=== PATIENT | male | born 1940 | race Caucasian/White ===

== ENCOUNTER → 2024-03-05 08:05 | Outpatient (REF) | payer MEDICARE, OTHER, SELFPAY ==
[2024-03-05 09:19] LABS: % Basophils 0.5 % (0-2); % Eosinophils 4.3 % (0-6); % Immature Granulocytes 0.5 % (0-0.5); % Lymphocytes 24.6 % (20.5-51.1); % Neutrophils 58.1 % (42.2-75.2); Absolute Eosinophils 0.3 10^3/uL (0-0.7); Absolute Lymphocytes 1.8 10^3/uL (1.2-3.4); Absolute Monocytes 0.9 10^3/uL (0.1-0.6); Absolute Neutrophils 4.3 10^3/uL (1.4-6.5); Hematocrit 45.2 % (39.0-52.0); Hemoglobin 15.5 g/dL (13.0-18.0); Mean Corp Hgb Conc. 34.3 g/dL (33.0-37.0); Mean Corpuscular Hgb 30.9 pg (27.0-31.0); Mean Corpuscular Volume 90.2 fL (80.0-94.0); Mean Platelet Volume 11.3 fL (7.4-10.4); Nucleated Red Blood Cells % 0 % (-); Platelet Count 323 10^3/uL (130-400); Red Blood Cell Count 5.01 10^6/uL (4.70-6.10); Red Cell Dist. Width 14.5 % (11.5-14.5); White Blood Cell Count 7.4 10^3/uL (4.8-10.8)
[2024-03-05 09:56] LABS: ALT (SGPT) 18 U/L (0-50); AST (SGOT) 31 U/L (17-59); Albumin 4.3 g/dl (3.5-5.0); Alkaline Phosphatase 69 U/L (38-126); Blood Urea Nitrogen 29 mg/dl (9-20); Calcium 10.1 mg/dl (8.4-10.2); Carbon Dioxide 28 mmol/L (22-30); Chloride 103 mmol/L (98-107); Glucose 106 mg/dl (70-99); Potassium 4.3 mmol/L (3.5-5.1); Sodium 139 mmol/L (135-145); Total Bilirubin 0.7 mg/dl (0.2-1.3); Total Cholesterol 232 mg/dl (50-199); Triglyceride 165 mg/dl (10-149); Very Low Density Lipoprotein 33 mg/dl (0-30); eGFR > 60.00
[2024-03-05 09:57] LABS: HDL Cholesterol 40 mg/dl; LDL Cholesterol, Calculated 159 mg/dl
== END ==
LOC: REG 08:05
PROVIDERS: ATTENDING PHYSICIAN Family Medicine; OTHER PHYSICIAN Internal Medicine Cardiovascular Disease; REFERRING PHYSICIAN Internal Medicine Gastroenterology
DX: I10 Essential (primary) hypertension (principal); Z86.79 Personal history of other diseases of the circulatory system; I48.0 Paroxysmal atrial fibrillation; K51.00 Ulcerative (chronic) pancolitis without complications; R79.9 Abnormal finding of blood chemistry, unspecified
CPT/HCPCS: 36415; 80053; 80061; 85025

== ENCOUNTER → 2024-11-18 09:21 | Outpatient (REF) | payer MEDICARE, OTHER, SELFPAY ==
[2024-11-18 10:21] LABS: % Basophils 0.5 % (0-2); % Eosinophils 2.4 % (0-6); % Immature Granulocytes 0.4 % (0-0.5); % Monocytes 9.9 % (1.7-9.3); % Neutrophils 69.8 % (42.2-75.2); Absolute Eosinophils 0.2 10^3/uL (0-0.7); Absolute Lymphocytes 1.4 10^3/uL (1.2-3.4); Absolute Monocytes 0.8 10^3/uL (0.1-0.6); Absolute Neutrophils 5.7 10^3/uL (1.4-6.5); Hematocrit 46.9 % (39.0-52.0); Hemoglobin 15.8 g/dL (13.0-18.0); Mean Corp Hgb Conc. 33.7 g/dL (33.0-37.0); Mean Corpuscular Hgb 30.6 pg (27.0-31.0); Mean Corpuscular Volume 90.9 fL (80.0-94.0); Mean Platelet Volume 11.5 fL (7.4-10.4); Nucleated Red Blood Cells % 0 % (-); Platelet Count 337 10^3/uL (130-400); Red Blood Cell Count 5.16 10^6/uL (4.70-6.10); Red Cell Dist. Width 14.9 % (11.5-14.5); White Blood Cell Count 8.2 10^3/uL (4.8-10.8)
[2024-11-18 12:01] LABS: ALT (SGPT) 18 U/L (0-50); AST (SGOT) 34 U/L (17-59); Albumin 4.4 g/dl (3.5-5.0); Alkaline Phosphatase 67 U/L (38-126); Blood Urea Nitrogen 32 mg/dl (9-20); Calcium 10.2 mg/dl (8.4-10.2); Carbon Dioxide 31 mmol/L (22-30); Chloride 101 mmol/L (98-107); Glucose 122 mg/dl (70-99); HDL Cholesterol 38 mg/dl; LDL Cholesterol, Calculated 149 mg/dl; Potassium 4.4 mmol/L (3.5-5.1); Sodium 140 mmol/L (135-145); Total Bilirubin 0.8 mg/dl (0.2-1.3); Total Cholesterol 222 mg/dl (50-199); Triglyceride 178 mg/dl (10-149); Very Low Density Lipoprotein 35 mg/dl (0-30); eGFR 59.63
== END ==
LOC: REG 09:21
PROVIDERS: ATTENDING PHYSICIAN Family Medicine
DX: I48.0 Paroxysmal atrial fibrillation (principal); I48.91 Unspecified atrial fibrillation; I10 Essential (primary) hypertension; K51.00 Ulcerative (chronic) pancolitis without complications; N18.2 Chronic kidney disease, stage 2 (mild); R79.9 Abnormal finding of blood chemistry, unspecified; Z95.1 Presence of aortocoronary bypass graft
CPT/HCPCS: 36415; 80053; 80061; 85025

== ENCOUNTER → 2025-02-24 13:34 | Outpatient (REF) | payer MEDICARE, OTHER, SELFPAY | LOC: RADI 13:34 | PROVIDERS: ATTENDING PHYSICIAN Radiology Diagnostic Radiology; FAMILY PHYSICIAN Physician Assistant Surgical | DX: M17.0 Bilateral primary osteoarthritis of knee (principal) ==

== ENCOUNTER 2025-03-22 06:39 | Outpatient (REF) | payer MEDICARE, OTHER, SELFPAY ==
[2025-03-22] VITALS (9 sets, daily range): BP systolic 83–166; BP diastolic 60–85
[2025-03-22 07:00] LABS: Hematocrit 46.8 % (39.0-52.0); Hemoglobin 16.2 g/dL (13.0-18.0); Mean Corp Hgb Conc. 34.6 g/dL (33.0-37.0); Mean Corpuscular Hgb 31.8 pg (27.0-31.0); Mean Corpuscular Volume 91.9 fL (80.0-94.0); Mean Platelet Volume 11.1 fL (7.4-10.4); Platelet Count 320 10^3/uL (130-400); Red Blood Cell Count 5.09 10^6/uL (4.70-6.10); White Blood Cell Count 8.9 10^3/uL (4.8-10.8)
[2025-03-22 07:07] LABS: INR 0.97; PT 13.2 Sec (11.4-14.6)
== END 2025-03-22 13:15 | disposition home or self-care (01) ==
LOC: RADI 06:39
PROVIDERS: ATTENDING PHYSICIAN Radiology Diagnostic Radiology; FAMILY PHYSICIAN Family Medicine; REFERRING PHYSICIAN Physician Assistant
DX: M17.12 Unilateral primary osteoarthritis, left knee (principal); M25.562 Pain in left knee; D68.8 Other specified coagulation defects; I73.9 Peripheral vascular disease, unspecified; Z53.8 Procedure and treatment not carried out for other reasons
CPT/HCPCS: 36415; 75710; 76937; 85027; 85610; 99152; 99153; C1769

== ENCOUNTER → 2025-03-30 11:27 | Outpatient (REF) | payer MEDICARE, OTHER, SELFPAY | LOC: HWRAD 11:27 | PROVIDERS: ATTENDING PHYSICIAN Internal Medicine Gastroenterology; FAMILY PHYSICIAN Family Medicine | DX: R09.89 Other specified symptoms and signs involving the circulatory and respiratory systems (principal) | CPT/HCPCS: 76770 ==

== ENCOUNTER → 2025-04-20 10:15 | Outpatient (REF) | payer MEDICARE, OTHER, SELFPAY ==
[2025-04-20 11:52] LABS: Protein/creatinine Ratio 0.1; Urine Protein 9 mg/dl
[2025-04-20 12:02] LABS: ALT (SGPT) 21 U/L (0-50); AST (SGOT) 33 U/L (17-59); Albumin 4.8 g/dl (3.5-5.0); Alkaline Phosphatase 60 U/L (38-126); Blood Urea Nitrogen 30 mg/dl (9-20); Calcium 10.1 mg/dl (8.4-10.2); Carbon Dioxide 26 mmol/L (22-30); Chloride 106 mmol/L (98-107); Glucose 120 mg/dl (70-99); HDL Cholesterol 39 mg/dl; LDL Cholesterol, Calculated 164 mg/dl; Potassium 4.2 mmol/L (3.5-5.1); Sodium 143 mmol/L (135-145); Total Bilirubin 0.7 mg/dl (0.2-1.3); Total Cholesterol 244 mg/dl (50-199); Total Protein 7.5 g/dl (6.3-8.2); Triglyceride 209 mg/dl (10-149); Very Low Density Lipoprotein 41 mg/dl (0-30); eGFR > 60.00
== END ==
LOC: REG 10:15
PROVIDERS: ATTENDING PHYSICIAN Specialist; FAMILY PHYSICIAN Family Medicine
DX: N18.2 Chronic kidney disease, stage 2 (mild) (principal); I10 Essential (primary) hypertension; R80.9 Proteinuria, unspecified; Z95.1 Presence of aortocoronary bypass graft; I48.0 Paroxysmal atrial fibrillation
CPT/HCPCS: 36415; 80053; 80061; 82570; 84156

== ENCOUNTER 2025-04-23 17:23 | Inpatient (IN) | payer MEDICARE, OTHER, SELFPAY ==
[2025-04-23] VITALS (16 sets, daily range): BP systolic 128–157; BP diastolic 59–97; BMI 29.2; BMI 28.3
[2025-04-23 10:01] LABS: % Basophils 0.3 % (0-2); % Eosinophils 2.2 % (0-6); % Immature Granulocytes 0.5 % (0-0.5); % Lymphocytes 14.2 % (20.5-51.1); % Monocytes 11.5 % (1.7-9.3); % Neutrophils 71.3 % (42.2-75.2); Absolute Eosinophils 0.2 10^3/uL (0-0.7); Absolute Lymphocytes 1.3 10^3/uL (1.2-3.4); Absolute Neutrophils 6.3 10^3/uL (1.4-6.5); Hemoglobin 15.1 g/dL (13.0-18.0); Mean Corp Hgb Conc. 34.3 g/dL (33.0-37.0); Mean Corpuscular Hgb 31.3 pg (27.0-31.0); Mean Corpuscular Volume 91.1 fL (80.0-94.0); Mean Platelet Volume 10.8 fL (7.4-10.4); Nucleated Red Blood Cells % 0 % (-); Platelet Count 269 10^3/uL (130-400); Red Blood Cell Count 4.83 10^6/uL (4.70-6.10); Red Cell Dist. Width 14.6 % (11.5-14.5); White Blood Cell Count 8.8 10^3/uL (4.8-10.8)
--- NOTE | 2025-04-23 10:07 | ED.GENMED ---
History of Present Illness
General
Chief Complaint: Chest Pain
Source: patient and ambulance crew
Exam Limitations: none
Time Seen by Provider: 04/23/25 09:49
History of Present Illness
History of Present Illness:
This patient is a very pleasant 84-year-old male who was feeling his usual self this morning when he woke up. He ate breakfast, which she describes as including granola, and felt like a piece of it got caught in his throat. He started to cough
intensely, and shortly after noted discomfort in his chest. He notes the pain was in the central/left side of his chest associated with discomfort in the right jaw. It was noted to be 8 out of 10 in intensity and over 20 minutes went down to a 2
and then a few minutes later fully resolved. He took for full dose aspirin and called EMS. He denies associated nausea, vomiting, diaphoresis, dyspnea, back pain, neck pain, headache, dizziness, leg swelling, or other complaints. He is pain-free
now and feels completely well.
Past History
Past History
ED Past Medical History: Arrthythmia, CAD, HTN and Other (Basal cell cancer)
ED Past Surgical History: Cardiac (CABG x4) and Other (Basal cell cancer removed from left eye lid)
Social History
Tobacco: Former smoker
Alcohol: None
Drug: None
Personal: Single
Living: alone
Employment: Employed
Family History
Family History: Diabetes
Phy Exam
Physical Exam
Physical Exam:
GENERAL: Alert , in no apparent distress
EYE: pupils equal and reactive
NECK: Supple, no significant adenopathy.
ENT: o/p clr, mmm.
CARDIAC: Regular rate and rhythm .
LUNGS: Clear breath sounds bilaterally, no acute respiratory distress, no wheezes/rales/rhonchi
ABDOMEN: Soft, without focal tenderness, no r/g, no cvat
NEUROLOGICAL: Alert and oriented, no focal neuro deficits
SKIN: Warm and dry, skin intact.
MUSCULOSKELETAL: No edema, well perfused.
PSYCH: Normal and appropriate interaction.
Scores
Heart Score for Chest Pain Patients
STEMI patient?: Not applicable
Course
Orders/Labs/Results
Orders:
Orders
04/23/25 Breakfast
Sodium, 2 Gram
At Your Request: Full Participation
04/23/25 09:46
Electrocardiogram (*1) Urgent
Reason for Study: Chest Pain
Cardiac Monitoring- Treatment ONCE
EKG- Treatment ONCE
IV Insert/Care/Rem.- Treatment PRN
04/23/25 09:52
Complete Blood Count/With Diff Urgent
Comprehensive Metabolic Panel Urgent
Prothrombin Time Urgent
Troponin I Urgent
04/23/25 10:06
CR Chest - 2 Views Urgent
Comment:
Reason For Exam: cp afater coughing
04/23/25 12:52
Troponin I Urgent
04/23/25 15:56
Troponin I Urgent
04/23/25 16:34
Electrocardiogram (*1) Urgent
Reason for Study: Chest Pain
EKG- Treatment ONCE
04/23/25 17:04
Heparin Protocol- PTT Orders As Directed
PTT per Heparin protocol: -Obtain CBC and baseline PTT - if not already collected.
-Obtain PTT 6 hours from start of infusion. Then, every 6 hours until 2 consecutive
PTT's are therapeutic. Then, PTT Daily.
-With each rate change, obtain PTT every 6 hours until 2 consecutive PTT's are
therapeutic. Then, PTT Daily.
Notify MD As Directed
Notify physician if: PTT is greater than or equal to 200.
04/23/25 17:05
Admit/Transfer Patient As Directed
Co-Sign Provider:
Level of Care: Inpatient admission
Assign to:: IVU
Physician / Group: Htay
Diagnosis: NSTEMI
Reason for Hospitalization: heparin drip, possibly cardiac cath
Expected length of stay greater than two midnights?: Yes
ELOS- Estimated Length of Stay in days: 3
I certify the patient meets the requirements for IP care: Yes
04/23/25 17:06
PRN Pain Medication Management As Directed
May give lesser potent ordered pain med per pt: Yes
preference::
Protocol:: Medication orders for pain may be administered in a
manner that supports deferring to patient preference
when the pt is:
- Requesting an ordered lesser potent pain medication.
Least to most potent pain medications are defined
as: acetaminophen < NSAID < tramadol < opioids
(morphine, oxycodone, hydromorphone).
- Requesting a lesser dose of the same medication IF
ORDERED.
- Requesting a less intrusive route of administration
if both routes are prescribed by the provider (PO <
IV).
04/23/25 17:07
Code Status As Directed
Resuscitation Status: Full Code
04/23/25 17:15
Heparin 92525 Units/250 ml 25,000 units in 250 ml IV PER PROTOCOL
Weight to be used for heparin protocol in kilograms (kg):: 94.8
Protocol:: Cardiac Tx/Acute Coronary
PTT Goal Range to be used:: PTT 73 to 111 seconds
Order type:: Initial
INITIAL Infusion Dose (UNITS/KG/hr) & then follow protocol:: 12 units/kg/hr
Infusion Dose in UNITS/hr & then follow protocol (UNITS/hr):: 1,000
INFUSION RATE in mL/hr & then follow protocol (mL/hr):: 10
PTT less than or equal to 64 seconds:: Increase rate by 200 units/hr (+ 2 mL/hr)
PTT 64.1 to 72.9 seconds:: Increase rate by 100 units/hr (+ 1 mL/hr)
PTT 73 to 111 seconds:: Target Range. No change in rate.
PTT 111.1 to 130.9 seconds:: Decrease rate by 100 units/hr (- 1 mL/hr)
PTT 131 to 199.9 seconds:: HOLD for 1 hr. Then decrease rate by 200 units/hr (- 2 mL/hr)
PTT greater than or equal to 200 seconds:: HOLD for 2 hrs & Notify Provider. Then decrease by 200 units/hr (-
2 mL/hr)
Lab follow-up:: Each change, PTT q6h until 2 consecutive are therapeutic. Then PTT
daily.
04/23/25 17:16
PTT Urgent
Comment: Obtain baseline before beginning heparin infusion if not already collected
04/23/25 18:31
Acetaminophen [Tylenol] 650 mg PO Q4HPRN PRN
Nitroglycerin Sublingual [Nitrostat (Sublingual)] 0.4 mg SL [id number] PRN
Ondansetron Injectable [Zofran] 4 mg IV Q6HPRN PRN
04/23/25 18:31
CARDIOLOGY CONSULT Routine
Consulting Provider: Des Omer
Was physician already notified: Yes
Activity As Directed
Activity Level: Out of Bed-Early Mobility
With Assistance
I&O [Intake/ Output] As Directed
Frequency: q12h
Vital Signs As Directed
Frequency: Per unit guidelines
Weight As Directed
Frequency: Daily
04/23/25 20:00
Metoprolol [Lopressor] 50 mg PO BID
04/23/25 22:00
balsalazide See Dose Instructions PO TID
04/23/25 23:11
Troponin I Q6H
04/24/25 04:33
Basic Metabolic Panel IN AM
Complete Blood Count/No Diff IN AM
Hgba1c [Glycohemoglobin (HgbA1c)] IN AM
Lipid Profile [Cardiovascular Evaluation] IN AM
Magnesium IN AM
Troponin I Q6H
04/24/25 Breakfast
NPO
Allow oral meds: Yes
Allow clear liquids: 4hrs prior to procedure
NPO with Ice Chips: Yes
Comment: may have unrestricted clear liquid up to 4 hrs prior to scheduled procedure
04/24/25 08:00
Aspirin Low Dose EC [Aspir Low (Enteric Coated)] 81 mg PO DAILY
Tamsulosin [Flomax] 0.4 mg PO DAILY
Valsartan [Diovan] 320 mg PO DAILY
Zinc 50mg (Zinc Sulfate 220mg) [Zinc] 50 mg PO DAILY
04/25/25 02:35
Complete Blood Count/No Diff Q2D
Comment: Notify MD if platelet count is <130,000 or decreases by 50% from baseline
04/27/25 06:00
Complete Blood Count/No Diff Q2D
Comment: Notify MD if platelet count is <130,000 or decreases by 50% from baseline
04/29/25 06:00
Complete Blood Count/No Diff Q2D
Comment: Notify MD if platelet count is <130,000 or decreases by 50% from baseline
05/01/25 06:00
Complete Blood Count/No Diff Q2D
Comment: Notify MD if platelet count is <130,000 or decreases by 50% from baseline
05/03/25 06:00
Complete Blood Count/No Diff Q2D
Comment: Notify MD if platelet count is <130,000 or decreases by 50% from baseline
05/05/25 06:00
Complete Blood Count/No Diff Q2D
Comment: Notify MD if platelet count is <130,000 or decreases by 50% from baseline
05/07/25 06:00
Complete Blood Count/No Diff Q2D
Comment: Notify MD if platelet count is <130,000 or decreases by 50% from baseline
05/09/25 06:00
Complete Blood Count/No Diff Q2D
Comment: Notify MD if platelet count is <130,000 or decreases by 50% from baseline
Abnormal Lab Results
04/23/25 04/23/25
09:52 15:56
MCH 31.3 H pg
(27.0-31.0)
RDW 14.6 H %
(11.5-14.5)
MPV 10.8 H fL
(7.4-10.4)
Absolute Monos (auto) 1.0 H 10^3/uL
(0.1-0.6)
Lymphocytes % 14.2 L %
(20.5-51.1)
Monocytes % 11.5 H %
(1.7-9.3)
Chloride 111 H mmol/L
(98-107)
BUN 33 H mg/dl
(9-20)
Glucose 135 H mg/dl
(70-99)
Troponin I 0.047 H* D ng/ml
04/23/25 09:52
04/23/25 09:52
Vital Signs
Initial and Last Documented VS:
Initial Vital Signs
Temp Pulse Resp BP Pulse Ox
98.4 F 79 22 147/73 95
04/23/25 09:39 04/23/25 09:39 04/23/25 09:39 04/23/25 09:39 04/23/25 09:39
Last Documented Vital Signs
Temp Pulse Resp BP Pulse Ox
98.4 F 71 20 121/88 97
04/25/25 08:06 04/25/25 08:05 04/25/25 08:06 04/25/25 08:05 04/25/25 08:06
*Critical Care Note
Total Time (30-74mins, 75-104mins- exclusive of procedures): Not Applicable
Update Note
Update Note:
Patient presents to the Emergency Department with ___chest pain after coughing
Number and Complexity of Problems Addressed at the Encounter
� Chronic conditions affecting care:
� Acute Exacerbation and/or Progression of Chronic Illness:
� Differential Diagnosis includes: But not limited to ACS, aspiration, pneumothorax, musculoskeletal etiology, etc. etc.
Amount and/or Complexity of Data to be Reviewed and Analyzed
� I performed an independent evaluation of and my interpretation is:
EKG: Read by me, normal sinus rhythm, PVCs noted, no acute ischemia
CT:
Xrays:cxr read by me nad
Laboratory Studies:generally unremarkable but for trop trending upward
Other:
� Review of other/old records reveals: Patient was seen December 2015 to discuss rhythm control options regarding his A-fib/a flutter. H&P reviewed, patient had an ablation at that time.
� Clinical information was obtained by an independent historian:
� Prescriptions/Medications Considered but not given:
� Further testing considered but not performed:
Risk of Complications and/or Morbidity or Mortality of Patient Management
� Social determinants of health affecting care:
� Discussion with other providers (PCP, Hospitalists, Consultants, etc):
� Escalation of care including admission/observation vs risk of discharge considered:Multiple reassesments, pt remains pain free, however trop trending upward, ?this AM event reflect ischemia? Repeat ecg uncahnged. Case d/w
hospitalist for admission/obs.
ED Attending Note
-
Portions of this chart may have been created with voice recognition software.� Occasional wrong word or��sound alike� substitutions may have occurred due to the inherent limitations of voice recognition software.
Discharge Plan
Departure
Patient Disposition: Admit
Date of Disposition: 04/23/25
Time of Disposition: 16:39
Admit to: Telemetry
Presentation/result/management discussed w/ accepting MD/DO: Hospitalist
Discharge Problem:
Chest pain
Interventions
Interventions:
*Risk Screen - Suicide Last Done: 04/23/25 10:34
*General Assessment Last Done: 04/23/25 10:34
*Neglect/Abuse Screening Last Done: 04/23/25 10:34
*ED- Fall Risk Assessment Last Done: 04/23/25 10:34
*ED COVID-19 Vaccine History Last Done: 04/23/25 10:34
*Nursing Disposition Last Done: 04/23/25 18:39
ED- Cardiac Assessment Last Done: 04/23/25 10:34
Discharge Date and Time
Discharge Date/Time: 04/23/25 18:40
[2025-04-23 10:10] LABS: INR 1.01; PT 13.6 Sec (11.4-14.6)
[2025-04-23 10:22] LABS: ALT (SGPT) 22 U/L (0-50); AST (SGOT) 32 U/L (17-59); Albumin 4.2 g/dl (3.5-5.0); Alkaline Phosphatase 62 U/L (38-126); Blood Urea Nitrogen 33 mg/dl (9-20); Calcium 9.9 mg/dl (8.4-10.2); Carbon Dioxide 25 mmol/L (22-30); Chloride 111 mmol/L (98-107); Glucose 135 mg/dl (70-99); Potassium 3.8 mmol/L (3.5-5.1); Sodium 144 mmol/L (135-145); Total Bilirubin 0.7 mg/dl (0.2-1.3); Total Protein 6.6 g/dl (6.3-8.2); eGFR > 60.00
[2025-04-23 10:33] LABS: Troponin I 0.021 ng/ml
[2025-04-23 13:30] LABS: Troponin I 0.029 ng/ml
[2025-04-23 16:30] LABS: Troponin I 0.047 ng/ml
--- NOTE | 2025-04-23 16:41 | HPS.HSE ---
Family Physician
-
Family Physician: To Samson
Chief Complaint
-
Chest Pain
History of Present Illness
Patient is an 84 y/o male past medical history of ASCVD s/p CABG, hypertension, and ulcerative colitis who presents following an episode of chest pain. Patient reports he was eating breakfast this morning when got something caught in his throat.
He had a severe episode of coughing and then he developed chest pain. He describes a chest pressure in the center of his chest with radiation along the left ribs, and right jaw. He denies any symptoms down the arm. He denies shortness of breath
or diaphoresis.
Medical History
Past Medical History
Past Medical History: Reports Other
Additional Past Medical History:
Coronary Artery Disease s/p CABG
Atrial Fibrillation s/p Ablation
Peripheral Arterial Disease
Essential Hypertension
Hyperlipidemia
Ulcerative Colitis
BPH
Past Surgical History: Reports Other
Additional Past Surgical History:
CABG
Social History
Tobacco: Former Smoker (Quit in 1981)
Alcohol: Other (Very rare)
Family History
Family History: Not pertinent
Allergies / Home Medications
Allergies reflects when Allergies were last updated in [facility].
Home Medications with original date entered in [facility]
Allergy/Medication List:
Allergies
Allergy/AdvReac Type Severity Reaction Status Date / Time
No Known Allergies Allergy Verified 04/23/25 09:39
Home Medications
balsalazide 750 mg capsule 3 tab PO TID 09/17/15
metoprolol tartrate 50 mg tablet 50 mg PO BID 09/17/15
valsartan 160 mg tablet 320 mg PO DAILY 09/17/15
aspirin 81 mg tablet,delayed release 81 mg PO DAILY 01/29/21
tamsulosin 0.4 mg capsule 0.4 mg PO DAILY 01/29/21
zinc gluconate 50 mg tablet 50 mg PO DAILY 04/23/25
Review of Systems
-
A 12 point ROS was completed and negative except as noted: Yes
Constitutional: Denies Fever or Chills
Respiratory: Reports See HPI
Cardiac: Reports See HPI
Abdomen/GI: Denies Abdominal Pain, Nausea or Vomiting
Physical Exam
Vital Signs
Vital Signs
Temp Pulse Resp BP Pulse Ox
98.4 F 69 18 145/69 96
04/23/25 09:39 04/23/25 16:15 04/23/25 16:15 04/23/25 16:00 04/23/25 16:15
Physical Exam
General: Comfortable and Conversant
HEENT: Anicteric and Moist mucous membranes
Respiratory: Clear and Non Labored Respirations
Cardiac: S1/S2 and Irregular Rhythm (Telemetry monitoring consistent with sinus with frequent PACs)
GI: Soft and Non Tender
Rectal: Deferred by Provider
Musculoskeletal: No Clubbing, No Cyanosis and No Edema
Skin: Warm and Dry
Neuro: Awake, Alert, Oriented and Nonfocal/grossly intact
Psych: Calm
Laboratory Results
-
04/23/25 09:52
04/23/25 09:52
Laboratory Results
PT 13.6 Sec (11.4-14.6) 04/23/25 09:52
INR 1.01 04/23/25 09:52
Total Bilirubin 0.7 mg/dl (0.2-1.3) 04/23/25 09:52
AST 32 U/L (17-59) 04/23/25 09:52
ALT 22 U/L (0-50) 04/23/25 09:52
Alkaline Phosphatase 62 U/L (38-126) 04/23/25 09:52
Troponin I 0.047 ng/ml H* D 04/23/25 15:56
Data Reviewed
-
Diagnostic Radiology: Report Reviewed by me (Chest X-Ray)
Medical Tests (Nuc Med, Echo, EKG etc): Report Reviewed by me (EKG report)
Lab Data: Labs Reviewed by me
Old Records: Reviewed
Impression/Plan
-
NSTEMI
-Consult Cardiology
-Start heparin drip
-Trend troponin
-Continue aspirin
-NPO after midnight pending cardiology evaluation
Essential Hypertension
-Continue metoprolol and valsartan
Hyperlipidemia
-Patient is not a statin
-Check Lipid Panel
Ulcerative Colitis
-Continue balsalazide
BPH
-Continue tamsulosin
Hx Coronary Artery Disease s/p CABG
Hx Peripheral Arterial Disease
Hx Atrial Fibrillation s/p Ablation
DVT proph: Heparin Drip
Code Status: Full Code
--- NOTE | 2025-04-23 16:49 | W.PN.UPDATE ---
Addendum entered and electronically signed by Tomy Shipman MD 04/23/25 17:07:
Level of care; POS third TPNI and concern with NSTEMI. CBC card suggest Heparin gtt
Level of care switched to IP TLM in place of OBS TLM
Original Note:
Update Note
Progress Note Update
This note serves as an addendum to the H&P by volumetric weigher AINSLEY Eve ZAMORA
HPI
84M Former smoker, lives alone, HX Prx AF, CAD, CABG x4 HTN seen at ER:
- started with chocking or feeling like apiece of granola stuck in the throat while having breakfast
- started to cough intensely, and shortly after noted discomfort in his chest.
- the pain was in the central/left side of his chest associated with discomfort in the right jaw.
- It was noted to be 8 out of 10 and over 20 minutes went down to a 2 and then a few minutes later fully resolved.
- took for full dose aspirin and called EMS.
- denies associated nausea, vomiting, diaphoresis, dyspnea, back pain, neck pain, headache, dizziness, leg swelling, or other complaints. He is pain-free now and feels
Vital Signs
Temp Pulse Resp BP Pulse Ox
98.4 F 69 18 145/69 96
04/23/25 09:39 04/23/25 16:15 04/23/25 16:15 04/23/25 16:00 04/23/25 16:15
PE
Gen: NAD
HEENT: anicteric
Neck: supple
Lungs: CTA
Cor: RRR S1 S2
Abdomen: soft, benign
CORN HUSK BALER: AAO3 NFND
MS: no edema
Psych: appropriate interaction.
Laboratory Tests
04/23/25 04/23/25 04/23/25
09:52 12:52 15:56
WBC 8.8
Hgb 15.1
Plt Count 269
Chloride 111 H
BUN 33 H
Creatinine 1.0
eGFR > 60.00
Troponin I 0.021 0.029 D 0.047 H* D
EKG
SINUS RHYTHM WITH PREMATURE ATRIAL COMPLEXES
OTHERWISE NORMAL ECG
WHEN COMPARED WITH ECG OF 23-APR-2025 09:52,
PREMATURE VENTRICULAR COMPLEXES ARE NO LONGER PRESENT
PREMATURE ATRIAL COMPLEXES ARE NOW PRESENT
CXR
No acute disease of the chest
NO PRIOR hospitalist admission:
ASSESSMENT & PLAN
Acute onset of CP following cough; S/P ASA LEATHER SCRUBBER. currently CP free
Trending up TPNI : third TPNI is significantly elevated suspect NSTEMI
Normal EKG
HX CABG , CAD
- c/w LEATHER SCRUBBER baby ASA
- c/w Metoprolol tartrate 50mg BID
- to consider ECHO on Friday or OP
- CBC acrd consulted - Heparin gtt per D Adenaike
Essential HTN: stable control
- c/w Valsartan 320mg daily and Metoprolol tartrate 50mg BID
Established ASCVD but he is not on Statin ?
- he reports probably Drs recommended but I just do not want another pills !
- check lipid profile
In NSR
HX Prx AF
Acceptable HR at hi 60s on BB
- c/w Metoprolol tartrate
- check lipids
BPH
- on Tamsulosin
DVT Px: LMWH
Full code
Obs TLM
[2025-04-23] MEDS: HEPARIN 25000 UNITS/250 ML IV (17:29)
[2025-04-23] MEDS: LOPRESSOR 50 MG PO (20:48)
--- NOTE | 2025-04-23 22:00 | PTCARENOTE ---
Pt. rec'd into room 2244 from ED AAOx3; VSS. NSR with PAC's/PVCs's/ on the monitor. Pt. denies any chest pain/discomfort. Heparin gtt infusing as per order. Gait slightly unsteady, needs assist x 1 (especially with IV pole); rings appropriately,
fall precautions initiated. Pt. oriented to room and plan of care, understanding verbalized. Pt. resting quietly.
--- NOTE | 2025-04-23 22:05 | PTCARENOTE ---
7 bottles of meds from home and a medication organizer (days of week) filled with pills were sent to pharmacy for safe keeping. Receipt is in red discharge folder at back of chart. Please return them to patient at time of discharge.
[2025-04-23] MEDS: COLACE 100 MG PO (22:09)
[2025-04-23] MEDS: NON-FORMULARY ITEM 3 TABLET PO (22:09)
[2025-04-23 23:35] LABS: APTT 52.2 Sec (23.4-35.0)
[2025-04-23 23:49] LABS: Troponin I 0.058 ng/ml
[2025-04-24] VITALS (7 sets, daily range): BP systolic 120–137; BP diastolic 65–89; BMI 28.3
[2025-04-24 04:41] LABS: Hematocrit 44.6 % (39.0-52.0); Hemoglobin 15.5 g/dL (13.0-18.0); Mean Corp Hgb Conc. 34.8 g/dL (33.0-37.0); Mean Corpuscular Hgb 31.5 pg (27.0-31.0); Mean Corpuscular Volume 90.7 fL (80.0-94.0); Mean Platelet Volume 11.2 fL (7.4-10.4); Platelet Count 270 10^3/uL (130-400); Red Blood Cell Count 4.92 10^6/uL (4.70-6.10); Red Cell Dist. Width 14.4 % (11.5-14.5); White Blood Cell Count 8.7 10^3/uL (4.8-10.8)
[2025-04-24 04:56] LABS: APTT 78.4 Sec (23.4-35.0)
[2025-04-24 05:07] LABS: Blood Urea Nitrogen 29 mg/dl (9-20); Calcium 9.5 mg/dl (8.4-10.2); Carbon Dioxide 25 mmol/L (22-30); Chloride 108 mmol/L (98-107); Estimated Creatinine Clearance 65 ml/min; Glucose 92 mg/dl (70-99); HDL Cholesterol 36 mg/dl; LDL Cholesterol, Calculated 152 mg/dl; Magnesium 2.3 mg/dl (1.6-2.3); Potassium 3.6 mmol/L (3.5-5.1); Sodium 140 mmol/L (135-145); Total Cholesterol 214 mg/dl (50-199); Triglyceride 132 mg/dl (10-149); Very Low Density Lipoprotein 26 mg/dl (0-30); eGFR > 60.00
[2025-04-24] MEDS: DIOVAN 320 MG PO (07:41)
[2025-04-24] MEDS: LOPRESSOR 50 MG PO ×2 (07:41→21:38)
[2025-04-24] MEDS: ASPIR LOW (ENTERIC COATED) 81 MG PO (07:41)
[2025-04-24] MEDS: NON-FORMULARY ITEM 3 TABLET PO ×3 (07:41→21:39)
[2025-04-24] MEDS: COLACE 100 MG PO ×2 (07:41→21:38)
[2025-04-24] MEDS: FLOMAX 0.4 MG PO (07:41)
[2025-04-24] MEDS: ZINC 50 MG PO (07:43)
--- NOTE | 2025-04-24 09:15 | CON.CAR ---
Addendum entered and electronically signed by Des Omer MD 04/24/25 12:41:
Patient seen and examined in collaboration with PGY 2 Resident; agree with below.
84-year-old male (known to Dr. Allen, his primary Computer Support Analyst) with coronary artery disease status-post CABG (2005), paroxysmal atrial fibrillation status-post ablation (2008; patient declines anticoagulation), hypertension, hyperlipidemia,
prediabetes, and obesity presenting with chest pain.
- The patient states that he began to experience midsternal chest pain with radiation to his right jaw; cardiac enzymes were slightly elevated at 0.058.
- Cardiac examination: Heart regular rate and rhythm, normal S1 and S2, no murmurs/rubs/gallops; lungs clear to auscultation bilaterally; no edema.
- No acute findings on EKG.
- Troponin elevation concerning for an NSTEMI.
- Will arrange cardiac catheterization for tomorrow.
- Continue heparin drip, aspirin, and high-dose atorvastatin.
- Echocardiogram tomorrow.
- NPO after MN.
Original Note:
Documented by User: Quan Callahan MD, Resident 04/24/25 12:30
Consultation
Consultation Request
Date/Time Consultation Requested: 04-23-25
Date/Time Consultation Performed: 04-24-25
Requesting Provider: Erin Sutherland
Performing Provider: Dr. Des Omer
Reason for Consultation: NSTEMI
Medical History
-
Chief Complaint: Chest pain
History of Present Illness:
Mo Gardner, 84-year-old male with medical history significant for CAD s/p CABG 2005 and AFib s/p ablation 2008, is admitted to the hospital for management of NSTEMI. He was eating granola in the morning of 04-23-25 when he started choking on it,
and subsequently developed a heavy chest pain adiation along the left rib and right jaw. Called 911 and was brought to the hospital. Symptoms resolved within 30 minutes of onset with no residual issues. ECG with sinus arrhythmia and troponins that
peaked at 0.058 on 04-23-25. Started on heparin drip.
Past Medical History
Past Medical History: Other (Coronary Artery Disease s/p CABG Atrial Fibrillation s/p Ablation Peripheral Arterial Disease Essential Hypertension Hyperlipidemia Ulcerative Colitis BPH)
Past Surgical History: Cardiac (CABG)
Social History
Tobacco: Former Smoker
Alcohol: Occasional
Drug: None
Employment: Retired
Family History
Family History: Reviewed & Not Pertinent
Allergies / Home Medications
Allergy/AdvReac Type Severity Reaction Status Date / Time
No Known Allergies Allergy Verified 04/23/25 09:39
�Medication �Instructions �Recorded �Confirmed �Type
balsalazide 750 mg capsule 3 tab PO TID 09/17/15 04/23/25 History
metoprolol tartrate 50 mg tablet 50 mg PO BID 09/17/15 04/23/25 History
valsartan 160 mg tablet 320 mg PO DAILY 09/17/15 04/23/25 History
aspirin 81 mg tablet,delayed 81 mg PO DAILY 01/29/21 04/23/25 History
release
tamsulosin 0.4 mg capsule 0.4 mg PO DAILY 01/29/21 04/23/25 History
zinc gluconate 50 mg tablet 50 mg PO DAILY 04/23/25 04/23/25 History
Review of Systems
-
History Source: Patient
All other systems: Negative unless noted
Constitutional: No Symptoms and Fatigue
EENT: No Symptoms
Respiratory: No Symptoms
Cardiac: No Symptoms
Abdomen/GI: No Symptoms
: No Symptoms
Musculoskeletal: No Symptoms
Skin: No Symptoms
Neurological: No Symptoms
Endocrine: No Symptoms
Hematologic/Lymphatic: No Symptoms
Physical Exam
Vital Signs
Temp Pulse Resp BP Pulse Ox
98.2 F 76 20 137/89 95
04/24/25 07:06 04/24/25 04:23 04/24/25 07:06 04/24/25 04:23 04/24/25 07:06
Lab Results
04/24/25 04:33
04/24/25 04:33
Troponin I 0.050 ng/ml H* 04/24/25 04:33
Physical Exam
General: No Apparent Distress and Comfortable
HEENT: Normocephalic, Anicteric, Moist Mucous Membranes and Atraumatic
Respiratory: Clear and Non Labored Respirations
Cardiac: S1/S2 and Regular Rhythm; Negative Murmur, Rub or Peripheral Edema
GI: Soft and Non Tender
Genito-urinary: No Costovertebral Tender
Musculoskeletal: No Clubbing, No Cyanosis and No Edema
Skin: Warm and Dry
Neuro: Awake, Alert, No Motor Deficits and Nonfocal/Grossly Intact
Psych: Calm
Impression / Plan
-
NSTEMI
- Troponin peaked at 0.058 on 04-23-25.
- Symptoms resolved within 30 minutes of onset.
- Asymptomatic at present and feels well.
- Continue aspirin and high-intensity statin.
- Heparin drip.
- NPO after midnight; [facility] 04-25-25.
Coronary artery disease s/p CABG 2005
Hyperlipidemia
- LDL not at goal <55.
- Increase statin.
History of atrial fibrillation, s/p ablation 2008
- Not on DOAC due to history of lower GI bleed secondary to UC.
Primary hypertension
- Goal normotension.
Peripheral Arterial Disease
Essential Hypertension
Ulcerative Colitis
BPH

Documented by User: Des Omer MD 04/24/25 12:35
Data Reviewed
-
EKG: Tracing Personally Visualized and interpreted (04/23/2025: Sinus rhythm at 71 bpm with premature PACs.)
Radiology: Report Reviewed by me (Chest x-ray 04/23/2025: No acute disease of the chest.)
Labs: Labs Reviewed by me
[2025-04-24 09:51] LABS: Glycohemoglobin (HgbA1c) 6.2 % (4.0-5.6)
--- NOTE | 2025-04-24 10:47 | W.PN.HOSP.TC ---
Today's Communication/Plan
-
Restart diet
start statin
Heparin drip
Monitor blood pressure
Echo in the morning
Assessment / Plan
Assessment / Plan
NSTEMI
Remains chest pain-free
-Consult Cardiology
-Started heparin drip
-Mild bump in troponin noted.
-Continue aspirin. Check echo in the morning.
- Cardiology input
Essential Hypertension
-Continue metoprolol and valsartan
Hyperlipidemia
-Patient is not a statin
-Cholesterol elevated start patient on Lipitor. No allergies noted.
Ulcerative Colitis
-Continue balsalazide
BPH
-Continue tamsulosin
Hx Coronary Artery Disease s/p CABG
Hx Peripheral Arterial Disease
Hx Atrial Fibrillation s/p Ablation
DVT proph: Heparin Drip
Code Status: Full Code
Anticipated Discharge: > 48 hours
Subjective/Interval History
-
Date of Service: April 24, 2025
Denies any further chest pain
Said had 1 event after eating breakfast at home and has been without any chest pain
Objective Data
-
Labs:
Laboratory Results
04/23/25 04/23/25 04/24/25
05:40 23:11 04:33
WBC 8.7
Hgb 15.5
Hct 44.6
Plt Count 270
APTT Cancelled 52.2 H 78.4 H
Sodium 140
Potassium 3.6
Chloride 108 H
Carbon Dioxide 25
BUN 29 H
Creatinine 0.9
Glucose 92
Calcium 9.5
04/24/25
10:41
WBC
Hgb
Hct
Plt Count
APTT Pending
Sodium
Potassium
Chloride
Carbon Dioxide
BUN
Creatinine
Glucose
Calcium
Vital Signs:
Vital Signs
Temp Pulse Resp BP Pulse Ox
98.2 F 76 20 137/89 97
04/24/25 07:06 04/24/25 04:23 04/24/25 07:06 04/24/25 04:23 04/24/25 08:00
I&O
04/23/25 04/24/25 04/25/25
06:59 06:59 06:59
Intake Total 480 / 480
Balance 480 / 480
Physical Exam
-
General: Well Developed and No Apparent Distress
HEENT: Normocephalic, Atraumatic and Moist Mucous Membranes
Respiratory: Clear to Auscultation
Cardiac: Regular Rhythm and S1/S2; Negative Murmur, Rub or Gallop
GI: Soft, Nontender, Nondistended and Normal Bowel Sounds; Negative Organomegaly
Rectal: Deferred by Provider
Musculoskeletal: No Clubbing, No Cyanosis and No Edema
Skin: Warm; Negative Rash
Neuro: Awake and Nonfocal/Grossly Intact
Psych: Calm
[2025-04-24 11:02] LABS: APTT 94.7 Sec (23.4-35.0)
[2025-04-24] MEDS: HEPARIN 25000 UNITS/250 ML IV (15:09)
[2025-04-24] MEDS: LIPITOR 80 MG PO (17:00)
--- NOTE | 2025-04-24 17:36 | PTCARENOTE ---
Pt received this am with no c/o of any chest pain or sob. Heparin infusing as ordered. Assisted oob to the BR and chair, gait steady. No c/o offered.
[2025-04-24] MEDS: TYLENOL 650 MG PO (21:39)
[2025-04-24] MEDS: MELATONIN 5 MG PO (21:39)
[2025-04-24] MEDS: BenGay-Like 1 APPLIC TOPICAL (21:40)
[2025-04-25] VITALS (25 sets, daily range): BP systolic 73–141; BP diastolic 36–88; BMI 28.2
--- NOTE | 2025-04-25 02:34 | PTCARENOTE ---
PtNSR with PACs on monitor, Denies pain or discomfort. Heparin gtt per protocol. NPO for cath in am. Ambulates with x 1 assist and walker. safety measures in place, bed alarm activated
[2025-04-25 02:52] LABS: Hematocrit 44.4 % (39.0-52.0); Hemoglobin 15.2 g/dL (13.0-18.0); Mean Corp Hgb Conc. 34.2 g/dL (33.0-37.0); Mean Corpuscular Hgb 31.3 pg (27.0-31.0); Mean Corpuscular Volume 91.5 fL (80.0-94.0); Mean Platelet Volume 10.7 fL (7.4-10.4); Platelet Count 280 10^3/uL (130-400); Red Blood Cell Count 4.85 10^6/uL (4.70-6.10); Red Cell Dist. Width 14.6 % (11.5-14.5); White Blood Cell Count 8.5 10^3/uL (4.8-10.8)
[2025-04-25 03:15] LABS: Blood Urea Nitrogen 27 mg/dl (9-20); Calcium 10.4 mg/dl (8.4-10.2); Carbon Dioxide 28 mmol/L (22-30); Chloride 105 mmol/L (98-107); Estimated Creatinine Clearance 53 ml/min; Glucose 108 mg/dl (70-99); Potassium 3.5 mmol/L (3.5-5.1); Sodium 142 mmol/L (135-145); eGFR > 60.00
[2025-04-25] MEDS: COLACE PO ×2 (08:16→19:42)
[2025-04-25] MEDS: DIOVAN 320 MG PO (08:19)
[2025-04-25] MEDS: LOPRESSOR 50 MG PO ×2 (08:19→21:22)
[2025-04-25] MEDS: ZINC 50 MG PO (08:19)
[2025-04-25] MEDS: ASPIR LOW (ENTERIC COATED) 81 MG PO (08:19)
[2025-04-25] MEDS: BenGay-Like 1 APPLIC TOPICAL ×3 (08:19→21:23)
[2025-04-25] MEDS: FLOMAX 0.4 MG PO (08:20)
[2025-04-25] MEDS: NON-FORMULARY ITEM 3 TABLET PO ×3 (08:20→21:22)
--- NOTE | 2025-04-25 09:40 | W.PN.HOSP.TC ---
Today's Communication/Plan
-
Echo and left heart cath with today
Assessment / Plan
Assessment / Plan
NSTEMI
Remains chest pain-free
-Continue heparin drip. H&H stable.
-Mild bump in troponin noted.
-Continue aspirin. Await echocardiogram today. Plan for possible left heart cath noted.
- Cardiology following.
Essential Hypertension
-Continue metoprolol and valsartan
Hyperlipidemia
-Patient is not a statin
-Cholesterol elevated startrd patient on Lipitor. No allergies noted.
Ulcerative Colitis
-Continue balsalazide
BPH
-Continue tamsulosin
Hx Coronary Artery Disease s/p CABG
Hx Peripheral Arterial Disease
Hx Atrial Fibrillation s/p Ablation
DVT proph: Heparin Drip
Code Status: Full Code
Anticipated Discharge: Today
Subjective/Interval History
-
Date of Service: April 25, 2025
No further chest pain. Denies shortness of breath. No nausea vomiting or abdominal pain.
Voices no specific complaints today. N.p.o. for the procedure.
Objective Data
-
Labs:
Laboratory Results
04/25/25
02:35
WBC 8.5
Hgb 15.2
Hct 44.4
Plt Count 280
APTT 100.0 H
Sodium 142
Potassium 3.5
Chloride 105
Carbon Dioxide 28
BUN 27 H
Creatinine 1.1
Glucose 108 H
Calcium 10.4 H
Vital Signs:
Vital Signs
Temp Pulse Resp BP Pulse Ox
98.4 F 71 20 121/88 97
04/25/25 08:06 04/25/25 08:05 04/25/25 08:06 04/25/25 08:05 04/25/25 08:06
I&O
04/24/25 04/25/25 04/26/25
06:59 06:59 06:59
Intake Total 480 / 480 142 / 142
Balance 480 / 480 142 / 142
Physical Exam
-
HEENT: Moist Mucous Membranes
Respiratory: Clear to Auscultation
Cardiac: Regular Rhythm and S1/S2; Negative Tachycardic
GI: Soft
Neuro: AO x 3
Data Reviewed
-
Labs: Labs Reviewed by me
--- NOTE | 2025-04-25 10:31 | W.PN.CD ---
Today's Communication / Plan
-
Cardiac catheterization to clarify coronary/bypass anatomy.
Continue metoprolol, atorvastatin.
Impression / Plan
-
Impression/Plan: 84 y/o male with HTN, HLD, PAD, AF s/p ablation and CAD s/p CABG (WATSON to LAD, SVG to D2, LRA to OM, SVG to LCx, 2005) admitted with NSTEMI.
#NSTEMI/CAD
-Acute on chronic, threat to life.
-Symptoms resolved within 30 minutes of onset.
-Troponin peaked at 0.058 on 04-23-25.
-Hx of CABG (WATSON to LAD, SVG to D2, LRA to OM, SVG to LCx, 2005).
-Continue aspirin, metoprolol and high-intensity statin.
-Cardiac catheterization to clarify coronary anatomy, possibly revascularization.
#Hyperlipidemia
-Chronic, stable but uncontrolled.
-Total cholesterol = 214, LDL = 152, HDL = 36, Triglycerides = 132.
-Statin increased to atorvastatin 80 mg daily.
-Goal LDL < 55.
#History of atrial fibrillation
-Chronic, s/p ablation 2008.
-Currently in NSR.
-Rate/rhythm control with metoprolol.
-CHADS2-Vasc = 4 (HTN, Age x2, vascular disease).
-Not on DOAC due to history of lower GI bleed secondary to UC.
#Primary hypertension
-Chronic, mildly elevated.
-Continue valsartan and metoprolol.
-Re-evaluate after catheterization.
#Peripheral Arterial Disease
#Ulcerative Colitis
#BPH
Subjective/Interval History:
No acute events since initial chest pain presentation.
Physical Exam
Vital Signs/Labs
Vital Signs
Temp Pulse Resp BP Pulse Ox
36.9 C 71 20 121/88 97
04/25/25 08:06 04/25/25 08:05 04/25/25 08:06 04/25/25 08:05 04/25/25 08:06
04/23/25 04/24/25 04/25/25
11:59 11:59 11:59
Actual Weight 94.8 kg 92.1 kg 91.7 kg
04/25/25 02:35
04/25/25 02:35
PT 13.6 Sec (11.4-14.6) 04/23/25 09:52
INR 1.01 04/23/25 09:52
APTT 100.0 Sec (23.4-35.0) H 04/25/25 02:35
Magnesium 2.3 mg/dl (1.6-2.3) 04/24/25 04:33
Triglycerides 132 mg/dl (10-149) 04/24/25 04:33
LDL Cholesterol, Calc 152 mg/dl 04/24/25 04:33
VLDL Cholesterol, Calc 26 mg/dl (0-30) 04/24/25 04:33
HDL Cholesterol 36 mg/dl 04/24/25 04:33
LAB Results
04/23/25 04/23/25 04/23/25
09:52 12:52 15:56
Troponin I 0.021 0.029 D 0.047 H* D
04/23/25 04/24/25 04/24/25
23:11 04:33 09:00
Troponin I 0.058 H* 0.050 H* Cancelled
Physical Exam
Constitutional: No acute distress and Comfortable
EENT: Anicteric and Moist mucous membranes
Cardiovascular: Rhythm & rate is regular, Pedal edema is absent, JVD pressure is normal, S1S2 is normal and Murmur/rub/gallop absent
Respiratory: Respiratory effort normal, Lungs clear to auscul., Wheeze Absent, Crackles Absent and Rhonchi Absent
GI: Soft, Distention absent, Flat, Non tender and Normal bowel sounds
Neuro/Psych: AO x 3
Data Reviewed
-
Date of Service: April 25, 2025
Medical Decision Making: Reviewed Test Results, Independent Historian Assessment and Test Interpretation
EKG: Tracing Personally Visualized and interpreted and Report Reviewed by me
X-Ray/CT/US/MRI/NUC/PET: Image Personally Visualized and interpreted and Report Reviewed by me
Medical Tests (PFT, Pathology etc): Image Personally Visualized and interpreted and Report Reviewed by me
Labs: Labs Reviewed by me
Old Records: Reviewed
[2025-04-25 11:52] LABS: ACT-LR - POC 335 Seconds (116-155)
[2025-04-25] MEDS: NSS 1000 IV (12:51)
[2025-04-25] MEDS: NITROGLYCERIN PREMIX 250 IV (13:15)
--- NOTE | 2025-04-25 13:16 | ITS.CL.ANGIO ---
Sales Enablement Manager - Angioplasty
Angioplasty
Procedure Report:
CARDIAC CATHETERIZATION REPORT
Date of Procedure: 04/25/2025
Referring: Des Omer M.D.
INDICATION: Known coronary artery disease status post CABG, non-ST elevation myocardial infarction.
PROCEDURE:
1. Left heart catheterization.
2. Coronary angiography.
3. Bypass angiography.
4. Successful PCI of the LRA to D2 mid graft.
5. Successful PCI of the LRA/D1 anastomosis.
A total of 114 minutes of procedural/moderate sedation was utilized. An independent medical affairs director was present to assist with and help manage the patient's level of consciousness and physiologic status.
ACCESS:
1. 6 Dutch right common femoral artery using a modified Seldinger technique with a micropuncture kit under ultrasound guidance.
CATHETERS:
1. 5 Dutch JL 4.
2. 5 Dutch JR4.
3. 5 Dutch KIERRA.
4. 6 Dutch JR4 guiding catheter.
HEMODYNAMIC DATA
Weight (kg): 91.7
AO (s/d/x, mmHg): 127/61/86
LV (s/x mmHg): 130/14
LEFT VENTRICULOGRAPHY: Not performed.
CORONARY ANGIOGRAPHY
Dominance: Codominant.
Left Main: Normal size, trifurcating vessel. There is no coronary artery disease.
LAD: Normal size vessel giving rise to at least 2 significant diagonals. There is a 70% lesion in the proximal vessel spanning the origin of the first diagonal. The vessel is chronically totally occluded in its midportion. There is a 90%
lesion in the ostium of the small first diagonal. The second diagonal is occluded at its origin. The LAD is supplied by a patent WATSON graft. D2 is supplied by a left radial artery graft.
Ramus: Small size vessel supplying the proximal margin of the anterolateral wall. There are luminal irregularities.
Circumflex: Large size, codominant vessel giving rise to at least 1 obtuse marginal. There is an 80-90% lesion in the proximal circumflex. There is a 60% lesion in the distal circumflex before the origin of the small partial LPDA. The obtuse
marginal is chronically totally occluded in its proximal margin.
RCA: Small size, codominant vessel. The vessel is chronically totally occluded at its origin. An epicardial collateral from the apical LAD to the right ventricular marginal is observed which subsequently fills the distal RCA.
BYPASS GRAFT ANGIOGRAPHY
WATSON to LAD: Normal size graft with end-to-side anastomosis to the mid/distal LAD. There is no evidence of stenosis or graft degeneration.
LRA to D2: Normal size graft with end-to-side anastomosis to the second diagonal. There is a 95% lesion in the mid graft with SHALOM II flow. There is an underappreciated, 80-90% lesion at the anastomosis.
SVG to OM1: Normal size graft with end-to-side anastomosis to the first obtuse marginal. There is no evidence of stenosis or graft degeneration.
SVG to LCx: Occluded at its origin.
INTERVENTION(S)
1. Successful PCI of the 95% mid LAD to D2 graft lesion (Xience Skypoint 3.25 x 38 EUSEBIO, postdilated with a 3.25 NC balloon) with reduction in stenosis to 0%, complicated by slow reflow/no reflow.
2. Successful PCI of the underappreciated 90% LRA/D2 anastomosis lesion (overlapping Xience Skypoint 2.25 x 28 EUSEBIO, 2.5 x 12 EUSEBIO, postdilated with a 2.25 NC balloon throughout and a 2.5 NC balloon in the overlap and proximal margin) with reduction
in stenosis to 0%, restoring SHALOM-3 flow.
Narrative:
The decision was made to proceed with percutaneous coronary intervention. The diagnostic catheter was removed over a wire and a 6Fr JR4 guiding catheter was advanced to the aortic root and seated in the LRA to D2 graft ostium. Additional heparin was
given and a Power Turn Flex wire was advanced into the distal second diagonal. Initially, we attempted to advance to a 5 mm spider wire into the distal graft. Unfortunately, the delivery portion of the spider wire would not pass the 95% lesion.
The spider wire was removed and we proceeded with predilation of the lesion in standard fashion. The 95% mid L right/D2 graft lesion was predilated with a 2.0 x 12 semi-compliant balloon to 12 darren. The semi-compliant balloon was removed and the
spider wire was readvanced. At this time, the delivery catheter was able to advance into the distal graft and the spider wire was deployed after the power turn Flex wire was removed. A 3.0 x 15 semicompliant balloon was advanced and the left
radial artery lesion was predilated to 12 darren. The semicompliant balloon was removed and a Xience Skypoint 3.25 x 38 drug-eluting stent was advanced. The stent was deployed at 12 atmospheres. The stent balloon was removed.
Angiography after stent deployment showed slow reflow with essentially no reflow after the anastomosis of the radial artery to the second diagonal. The patient began to experience chest pain which was managed with intravenous narcotics. The filter
wire was recaptured. Repeat angiography was performed after the filter had been recaptured and showed persistent no reflow. The power turn flex wire was readvanced with a quick cross microcatheter and support. The wire was able to enter the
second diagonal and the microcatheter was positioned beyond the area of no reflow. Angiography performed through the microcatheter confirmed intraluminal placement. Nitroglycerin 150 mcg was given distal to the area of no reflow without
significant improvement. The power turn flex wire was readvanced through the microcatheter and into the diagonal. We attempted to remove the microcatheter using a wire pinning technique, but the wire pulled back in spite of pinning with a balloon.
The microcatheter was fully withdrawn and the wire was readvanced, but this time had significant difficulty crossing the lesion. This was difficult to the point where I considered that the wire may be in the dissection plane. The power turn flex
wire was withdrawn and a whisper wire was advanced but continued to have difficulty crossing the lesion. Considering the possibility that the wire was within a dissection plane, I advanced the quick cross microcatheter into the distal left radial
artery graft again. The whisper wire was withdrawn and negative pressure was applied to the quick cross microcatheter in an attempt to seal the dissection plane with the vacuum. The whisper wire was advanced next to the quick cross microcatheter
and into the distal artery graft. In spite of the negative pressure from the quick cross microcatheter, we still had difficulty entering the lesion. Through persistence, we were ultimately able to traverse the lesion and reenter the second
diagonal. The quick cross microcatheter was removed and a 6 Dutch GuideLiner was advanced over the 2.0 x 12 semicompliant balloon. After confirming placement of the wire, the 2.0 x 12 semicompliant balloon was readvanced and the anastomotic
lesion was dilated to 12 darren. This restored SHALOM II flow through the graft.
Now with adequate wire purchase, we decided to perform PCI on the diagonal and anastomosis. Angiography showed that there was significant disease in the diagonal distal to the anastomosis. A Xience Skypoint 2.25 x 28 EUSEBIO was advanced. After
confirming appropriate placement of the stent, the stent was deployed at 12 darren. The stent balloon was withdrawn. Angiography confirmed excellent expansion of the stent, though also clarified that the anastomosis was not entirely covered and was a
larger vessel. A Xience Skypoint 2.5 x 12 drug-eluting stent was advanced and seated in an overlapping position with the diagonal stent. Angiography was performed, confirming that the entire anastomosis would be covered by the stent. After
confirming position, the stent was deployed at 12 darren. The stent balloon was withdrawn.
A 2.25 x 8 noncompliant balloon was advanced into the D2 stent and the entire stented segment was postdilated to 15 atmospheres. The 2.25 x 8 noncompliant balloon was withdrawn and a 2.5 x 8 noncompliant balloon was advanced. The overlapping stent
segment and the proximal stent margin were postdilated to 15 darren. The 2.5 x 8 noncompliant balloon was withdrawn and a 3.25 x 15 noncompliant balloon was advanced. The mid graft stent was postdilated to 15 darren. The noncompliant balloon was
withdrawn. Angiography was performed in orthogonal views, confirming good stent expansion and an excellent angiographic result. Slow through the graft into D2 was sluggish, though technically SHALOM-3. Angiography revealed that placement of the
anastomotic stents did close a lateral diagonal branch. The patient reported that his chest pain was still present but significantly improved and continuing to dissipate.
The coronary wire was withdrawn and the guide was disengaged from the artery. The catheter was removed over a standard J-wire.
Closure Device: 6 Dutch Angio-Seal.
Radiation (mGy): 2612.04
DAP (cm2.Gy): 196.87
Fluoroscopy time (minutes): 30.5
CONCLUSIONS
1. Codominant circulation with a chronic total occlusion of the RCA supplied by an epicardial collateral from the apical LAD, a 70% lesion in the proximal LAD spanning the origin of the first diagonal followed by chronic total occlusion in the mid
LAD, and 90% lesion in the ostium of the small first diagonal, ostial NOODLE PRESS OPERATOR of D2, and 80-90% lesion in the proximal circumflex and a chronic total occlusion of the proximal margin of OM1.
2. Status post coronary artery bypass grafting with a patent WATSON to LAD, patent SVG to obtuse marginal, occluded SVG to distal circumflex and a patent left radial artery to the second diagonal with a 95% lesion in the mid graft with SHALOM II flow
and an initially underappreciated 80-90% lesion in the LRA/D2 anastomosis.
3. Status post successful PCI of the 95% mid LRA to D2 (Xience Skypoint 3.25 x 38 EUSEBIO, postdilated with a 3.25 NC balloon) with reduction in stenosis to 0%, complicated by slow reflow/no reflow.
3. Status post successful PCI of the underappreciated LRI/D2 anastomotic lesion (overlapping Xience Skypoint 2.25 x 28 EUSEBIO, 2.5 x 12 EUSEBIO, postdilated with a 2.25 NC balloon throughout and a 2.5 NC balloon in the overlap and proximal margin) with
reduction in stenosis to 0%, restoring SHALOM-3 flow though jailing and closing a small, 1.5 mm lateral diagonal branch.
RECOMMENDATIONS:
1. Expectant management after cardiac catheterization via right femoral approach.
2. Limited weight bearing for one week.
3. Dual antiplatelet therapy with aspirin and clopidogrel for at least 12 months, followed by aspirin indefinitely.
4. Continue nitroglycerin drip and pain management for occlusion of lateral diagonal branch as well as for residual sluggish flow. Cycle CPKs.
5. Continue aggressive secondary prevention with high-dose, high potency statin. Goal LDL <55.
6. Echocardiogram ordered and pending.
7. Referral to cardiac rehab.
8. There may be a role for staged PCI of the proximal circumflex given the revelation that the SVG to distal circumflex is occluded.
Copy to: Des Omer M.D., To Samson M.D.
Anton Corcoran DO, FACC, FACP
--- NOTE | 2025-04-25 13:35 | PTCARENOTE ---
Rec'd pt post cath. R groin is c/d/i. No hematoma/bleeding noted. Post EKG obtained showing STEMI. Nilo and Vijaya made aware. Vijaya HAND STONE POLISHER at bedside. Pt c/o CP 02/24. CPK, Mag, and BMP drawn and sent. Nitro gtt ordered and infusing. See worklist.
Placed pt on 2L O2 NC for comfort and sating 98% RA.
[2025-04-25] MEDS: MORPHINE SULFATE 2 MG IV (13:41)
--- NOTE | 2025-04-25 13:42 | W.PN.UPDATE ---
Update Note
Progress Note Update
CTSP re: chest pain post PCI. Reviewed cath films with Dr. Corcoran- s/p angioplasty and stent x3 to radial graft-D1, occluding a small branch off diagonal artery in the process. He had chest pain on the table that has improved since cath but still
02/24. Post EKG NSR w/anterior ST elevations, expected with occluded branch artery.
Start nitroglycerin gtt at 10mcg, titrate to keep chest pain free.
Morphine IV for breakthrough chest pain as needed.
Stat CPK now and Q6h, with BMP, magnesium now.
Remain on bed rest for 3h post RFA angioseal.
Will continue to monitor.
--- NOTE | 2025-04-25 14:24 | PTCARENOTE ---
Rec'd pt post cath. R groin is c/d/i. No hematoma/bleeding noted. Post EKG obtained showing STEMI. Nilo and Vijaya made aware. Vijaya SEQUINS SPOOLER at bedside. Pt c/o CP 02/24. CPK enzyme drawn and sent. Nitro gtt ordered and infusing. See worklist. Placed pt
on 2L O2 NC for comfort and sating 98% RA. IV Morphine administered and pt reports relief. Call jackson w/in reach.
[2025-04-25 14:29] LABS: Magnesium 2.3 mg/dl (1.6-2.3)
[2025-04-25 14:35] LABS: ACT-LR - POC > 397 Seconds (116-155)
--- NOTE | 2025-04-25 14:45 | CM ---
Chart reviewed. Patient is independent of ADLS, lives alone in a apartment, 3rd floor, elevator access, ambulates with a SPC and is not current with VN. Plan is for the patient to return home. CM to follow
[2025-04-25 15:06] LABS: Magnesium 2.4 mg/dl (1.6-2.3); Total CK 77 U/L (55-170)
[2025-04-25 15:08] LABS: Blood Urea Nitrogen 26 mg/dl (9-20); Calcium 9.8 mg/dl (8.4-10.2); Carbon Dioxide 30 mmol/L (22-30); Chloride 106 mmol/L (98-107); Estimated Creatinine Clearance 59 ml/min; Glucose 131 mg/dl (70-99); Potassium 3.7 mmol/L (3.5-5.1); Sodium 140 mmol/L (135-145); eGFR > 60.00
[2025-04-25 16:16] LABS: CKMB 1.5 ng/ml (0.0-3.4)
[2025-04-25 17:21] LABS: Glucose - Point of Care 220 mg/dl (70-99)
--- NOTE | 2025-04-25 17:36 | PTCARENOTE ---
Pt OOB in chair eating dinner. On assessment to do a post angiography site check pt went unresponsive w/ a blank stare. Pt aroused to tactile stimuli. Pt assisted back to bed w/ assist x3. Feet elevated and post cath IVF still infusing. BP 73/53.
Nitro gtt turned off. Zayra Lilly aware. R groin is c/d/i. No hematoma/bleeding noted. Recheck BP and 140/68. Currently in bed; call manuel w/in reach.
[2025-04-25] MEDS: LIPITOR 80 MG PO (17:42)
[2025-04-25] MEDS: KCL 40 MEQ PO (17:42)
--- NOTE | 2025-04-25 18:02 | PTCARENOTE ---
Addendum entered by Doris Benson RN 04/25/25 18:04:
R groin is c/d/i. No bleeding/hematoma noted.
Original Note:
Pt OOB in chair eating dinner. On assessment to do a post angiography site check pt went unresponsive w/ a blank stare. Pt aroused to tactile stimuli. Pt assisted back to bed w/ assist x3. Feet elevated. BP 73/53. Nitro gtt turned off. 2L O2 NC
placed for comfort. Recheck BP and 140/68. Accucheck 220. Zayra Woodburn aware and orders placed. 500mL NSS infusing over 4 hours. See JAN. EKG ordered and obtained. Pt reports no CP/discomfort. Currently in bed; call jackson w/in reach.
[2025-04-25] MEDS: NSS 500 IV (18:30)
[2025-04-25] MEDS: TYLENOL 650 MG PO (21:22)
[2025-04-25] MEDS: MELATONIN 5 MG PO (21:22)
[2025-04-25 22:58] LABS: Total CK 441 U/L (55-170)
[2025-04-26 02:38] VITALS: BP 120/57
[2025-04-26 02:41] VITALS: BMI 28.3
[2025-04-26 03:48] LABS: Hematocrit 39.9 % (39.0-52.0); Hemoglobin 13.9 g/dL (13.0-18.0); Mean Corp Hgb Conc. 34.8 g/dL (33.0-37.0); Mean Corpuscular Hgb 31.6 pg (27.0-31.0); Mean Corpuscular Volume 90.7 fL (80.0-94.0); Mean Platelet Volume 10.8 fL (7.4-10.4); Platelet Count 264 10^3/uL (130-400); Red Cell Dist. Width 14.7 % (11.5-14.5); White Blood Cell Count 9.7 10^3/uL (4.8-10.8)
[2025-04-26 04:14] LABS: Blood Urea Nitrogen 24 mg/dl (9-20); Calcium 9.3 mg/dl (8.4-10.2); Carbon Dioxide 24 mmol/L (22-30); Chloride 111 mmol/L (98-107); Estimated Creatinine Clearance 65 ml/min; Glucose 106 mg/dl (70-99); Potassium 3.9 mmol/L (3.5-5.1); Sodium 141 mmol/L (135-145); eGFR > 60.00
[2025-04-26 04:17] LABS: Total CK 558 U/L (55-170)
[2025-04-26 04:51] LABS: CKMB 57.4 ng/ml (0.0-3.4)
--- NOTE | 2025-04-26 05:52 | PTCARENOTE ---
Pt NSR on monitor. VSS. Denies chest pain or SOB. OOB with x 1 assist[address] Safety measures in place, call jackson in reach
[2025-04-26 07:26] VITALS: BP 135/63
[2025-04-26] MEDS: FLOMAX 0.4 MG PO (07:50)
[2025-04-26] MEDS: LOPRESSOR 50 MG PO ×2 (07:50→20:01)
[2025-04-26] MEDS: DIOVAN 320 MG PO (07:50)
[2025-04-26] MEDS: ASPIR LOW (ENTERIC COATED) 81 MG PO (07:50)
[2025-04-26] MEDS: ZINC 50 MG PO (07:50)
[2025-04-26] MEDS: PLAVIX 75 MG PO (07:50)
[2025-04-26] MEDS: NON-FORMULARY ITEM 3 TABLET PO ×3 (07:50→21:59)
[2025-04-26] MEDS: BenGay-Like 1 APPLIC TOPICAL ×3 (07:50→21:58)
[2025-04-26] MEDS: COLACE PO ×2 (07:57→20:01)
--- NOTE | 2025-04-26 09:26 | W.PN.HOSP.TC ---
Today's Communication/Plan
-
Continue with current medical treatment
Will consider DC if okay from cardiology standpoint.
Assessment / Plan
Assessment / Plan
NSTEMI
S/p LHC, coronary angiogram, bypass angiogram, successful PCI of the LRA to D2 mid graft, and successful PCI of the LRA/D1 anastomosis. 04/25/2025
Post stenting chest pain for which she was put on IV nitroglycerin drip with resolution of symptoms.
Continue with aspirin Plavix for a year and then aspirin indefinitely.
LDL 152, goal is less than 55-patient introduced high intensity Lipitor of 80 mg.
Cardiology feels there may be a role for staged PCI of the proximal circumflex given the revelation that the SVG to distal circumflex is occluded.
Essential Hypertension
-Continue metoprolol and valsartan
Hyperlipidemia
-Patient is not a statin
-Cholesterol elevated startrd patient on Lipitor. No allergies noted.
Ulcerative Colitis
-Continue balsalazide
BPH
-Continue tamsulosin
Hx Coronary Artery Disease s/p CABG
Hx Peripheral Arterial Disease
Hx Atrial Fibrillation s/p Ablation
DVT proph: Heparin Drip
Code Status: Full Code
Anticipated Discharge: Today
Subjective/Interval History
-
Date of Service: April 26, 2025
No further chest pain. Off of IV nitroglycerin. Denies shortness of breath.
No dizziness.
Tolerating diet.
Objective Data
-
Labs:
Laboratory Results
04/26/25
03:37
WBC 9.7
Hgb 13.9
Hct 39.9
Plt Count 264
Sodium 141
Potassium 3.9
Chloride 111 H
Carbon Dioxide 24
BUN 24 H
Creatinine 0.9
Glucose 106 H
Calcium 9.3
Vital Signs:
Vital Signs
Temp Pulse Resp BP Pulse Ox
97.6 F 75 18 135/63 96
04/26/25 07:20 04/26/25 07:26 04/26/25 07:20 04/26/25 07:26 04/26/25 07:20
I&O
04/25/25 04/26/25 04/27/25
06:59 06:59 06:59
Intake Total 142 / 142 1390 / 1390
Output Total 175 / 175
Balance 142 / 142 1215 / 1215
Physical Exam
-
HEENT: Moist Mucous Membranes
Respiratory: Clear to Auscultation
Cardiac: Regular Rhythm and S1/S2
GI: Soft
Neuro: AO x 3
Data Reviewed
-
Labs: Labs Reviewed by me
--- NOTE | 2025-04-26 10:04 | PTCARENOTE ---
Rec'd pt at handoff. Tele- SR w/ PAC and PVC. HR 70-80s. Assessment completed as documented. Pt is ambulatory around room w/ RW and assist x1 with no c/o CP/discomfort/sob. R groin is c/d/i. No bleeding/hematoma noted. Plan of care reviewed w/ pt
and verbalizes understanding. Currently in bed; call jackson w/in reach.
--- NOTE | 2025-04-26 10:45 | CM ---
Chart reviewed. Patient is independent of ADLS, lives alone in a apartment, 3rd floor, elevator access, ambulates with a SPC. Patient is not current with VN and does not want VN. CM to follow
[2025-04-26 11:10] LABS: Total CK 552 U/L (55-170)
[2025-04-26 11:13] VITALS: BP 130/72
[2025-04-26 11:32] LABS: CKMB 48.2 ng/ml (0.0-3.4)
[2025-04-26 15:18] VITALS: BP 130/64
[2025-04-26] MEDS: LIPITOR 80 MG PO (17:11)
[2025-04-26 19:24] VITALS: BP 128/66
--- NOTE | 2025-04-26 19:51 | W.PN.CD ---
Today's Communication / Plan
-
chest pain improved
ambulate
likely discharge tomorrow
Impression / Plan
-
Impression/Plan: 84 y/o male with HTN, HLD, PAD, AF s/p ablation and CAD s/p CABG (WATSON to LAD, SVG to D2, LRA to OM, SVG to LCx, 2005) admitted with NSTEMI.
#NSTEMI/CAD
-Acute on chronic, threat to life.
-Symptoms resolved within 30 minutes of onset.
-Troponin peaked at 0.058 on 04-23-25.
-Hx of CABG (WATSON to LAD, SVG to D2, LRA to OM, SVG to LCx, 2005), c/b no reflow that improved by end of case
-s/p PCI with DESx3 to LRA-D2 04/25/2025
-patient with mild post-procedural chest pain and elevation of CPK which peaked, chest pain now resolved.
-Continue aspirin/Plavix x 12 months, metoprolol and high-intensity statin.
#Hyperlipidemia
-Chronic, stable but uncontrolled.
-Total cholesterol = 214, LDL = 152, HDL = 36, Triglycerides = 132.
-Statin increased to atorvastatin 80 mg daily.
-Goal LDL < 55.
#History of atrial fibrillation
-Chronic, s/p ablation 2008.
-Currently in NSR.
-Rate/rhythm control with metoprolol.
-CHADS2-Vasc = 4 (HTN, Age x2, vascular disease).
-Not on DOAC due to history of lower GI bleed secondary to UC.
-consider LAAO if concern for CVA risk in setting of AC discontinuation, particularly if Afib becomes recurrent
#Primary hypertension
-Chronic, mildly elevated.
-Continue valsartan and metoprolol.
#Peripheral Arterial Disease
#Ulcerative Colitis
#BPH
Subjective/Interval History:
Chest pain resolved, felt well with ambulation
Physical Exam
Vital Signs/Labs
Vital Signs
Temp Pulse Resp BP Pulse Ox
36.6 C 108 18 128/66 95
04/26/25 15:15 04/26/25 19:24 04/26/25 15:15 04/26/25 19:24 04/26/25 19:24
04/25/25 04/26/25 04/27/25
06:59 06:59 06:59
Actual Weight 91.7 kg 91.9 kg
04/26/25 03:37
04/26/25 03:37
PT 13.6 Sec (11.4-14.6) 04/23/25 09:52
INR 1.01 04/23/25 09:52
APTT 100.0 Sec (23.4-35.0) H 04/25/25 02:35
Magnesium 2.4 mg/dl (1.6-2.3) H 04/25/25 14:34
Triglycerides 132 mg/dl (10-149) 04/24/25 04:33
LDL Cholesterol, Calc 152 mg/dl 04/24/25 04:33
VLDL Cholesterol, Calc 26 mg/dl (0-30) 04/24/25 04:33
HDL Cholesterol 36 mg/dl 04/24/25 04:33
LAB Results
04/23/25 04/24/25 04/24/25
23:11 04:33 09:00
Troponin I 0.058 H* 0.050 H* Cancelled
Physical Exam
Constitutional: Comfortable
Cardiovascular: Rhythm & rate is regular
Respiratory: Respiratory effort normal
Neuro/Psych: AO x 3
Data Reviewed
-
Date of Service: April 26, 2025
Medical Decision Making: Reviewed Test Results
Labs: Labs Reviewed by me
[2025-04-26] MEDS: MELATONIN 5 MG PO (21:59)
[2025-04-26 22:04] VITALS: BP 133/67
[2025-04-27 02:41] VITALS: BP 123/58
--- NOTE | 2025-04-27 05:46 | PTCARENOTE ---
Pt sleeping when undisturbed. SR with PVCs on monitor. HR 60s-100s. BPs 120s-130s/60s. OOB with RW and standby. R diego dsg CDI. Denies complaints. Call jackson within reach
[2025-04-27 06:00] VITALS: BMI 28.1
[2025-04-27 07:01] VITALS: BP 114/53
--- NOTE | 2025-04-27 07:44 | W.PN.CD ---
Today's Communication / Plan
-
Stable for discharge and outpatient follow up.
We will plan for staged PCI of the 90% proximal LCx lesion (4-5 weeks).
Consider LAAO (Watchman) due to prior bleeding issues on DOAC.
Impression / Plan
-
Impression/Plan: 84 y/o male with HTN, HLD, PAD, AF s/p ablation and CAD s/p CABG (WATSON to LAD, SVG to D2, LRA to OM, SVG to LCx, 2005) admitted with NSTEMI.
#NSTEMI/CAD
-Acute on chronic, threat to life.
-Symptoms resolved within 30 minutes of onset.
-Troponin peaked at 0.058 on 04-23-25.
-Hx of CABG (WATSON to LAD, SVG to D2, LRA to OM, SVG to LCx, 2005), c/b no reflow that improved by end of case.
-s/p PCI with EUSEBIO x3 to LRA-D2, 04/25/2025.
-Patient with mild post-procedural chest pain and elevation of CK-MB which peaked, chest pain now resolved.
-Continue aspirin/Plavix x 12 months, metoprolol and high-intensity statin.
-Plan to stage LCx in 4-5 weeks.
#Hyperlipidemia
-Chronic, stable but uncontrolled.
-Total cholesterol = 214, LDL = 152, HDL = 36, Triglycerides = 132.
-Statin increased to atorvastatin 80 mg daily.
-Goal LDL < 55.
#History of atrial fibrillation
-Chronic, s/p ablation 2008.
-Currently in NSR.
-Rate/rhythm control with metoprolol.
-CHADS2-Vasc = 4 (HTN, Age x2, vascular disease).
-Not on DOAC due to history of lower GI bleed secondary to UC.
-Consider LAAO if concern for CVA risk in setting of AC discontinuation, particularly if Afib becomes recurrent.
#Primary hypertension
-Chronic, mildly elevated.
-Continue valsartan and metoprolol.
#Peripheral Arterial Disease
#Ulcerative Colitis
#BPH
Subjective/Interval History:
No acute events.
CK-MB peaked and fell.
Feels well.
DATA:
Cardiac catheterization/PCI, 04/25/2025:
CONCLUSIONS
1. Codominant circulation with a chronic total occlusion of the RCA supplied by an epicardial collateral from the apical LAD, a 70% lesion in the proximal LAD spanning the origin of the first diagonal followed by chronic total occlusion in the mid
LAD, and 90% lesion in the ostium of the small first diagonal, ostial [employer] SUPPORT of D2, and 80-90% lesion in the proximal circumflex and a chronic total occlusion of the proximal margin of OM1.
2. Status post coronary artery bypass grafting with a patent WATSON to LAD, patent SVG to obtuse marginal, occluded SVG to distal circumflex and a patent left radial artery to the second diagonal with a 95% lesion in the mid graft with SHALOM II flow
and an initially underappreciated 80-90% lesion in the LRA/D2 anastomosis.
3. Status post successful PCI of the 95% mid LRA to D2 (Xience [place] 3.25 x 38 EUSEBIO, postdilated with a 3.25 NC balloon) with reduction in stenosis to 0%, complicated by slow reflow/no reflow.
4. Status post successful PCI of the underappreciated LRI/D2 anastomotic lesion (overlapping Xience [place] 2.25 x 28 EUSEBIO, 2.5 x 12 EUSEBIO, postdilated with a 2.25 NC balloon throughout and a 2.5 NC balloon in the overlap and proximal margin) with
reduction in stenosis to 0%, restoring SHALOM-3 flow though jailing and closing a small, 1.5 mm lateral diagonal branch.
TTE, 04/25/2025:
CONCLUSIONS
Normal left ventricular systolic function. Left ventricular ejection fraction
is 50-55%.
Basal to mid inferior hypokinesis.
Mild/moderate eccentric mitral regurgitation.
Compared to 09/19/15: inferior hypokinesis is present, and LVEF is now 50-55%;
compared to 55-60% previously. MR looks mildmoderate compared to mild
previously.
Physical Exam
Vital Signs/Labs
Vital Signs
Temp Pulse Resp BP Pulse Ox
37.0 C 83 20 123/58 97
04/27/25 02:44 04/27/25 02:41 04/27/25 02:44 04/27/25 02:41 04/27/25 02:44
04/25/25 04/26/25 04/27/25
11:59 11:59 11:59
Actual Weight 91.7 kg 91.9 kg 91.5 kg
04/26/25 03:37
04/26/25 03:37
PT 13.6 Sec (11.4-14.6) 04/23/25 09:52
INR 1.01 04/23/25 09:52
APTT 100.0 Sec (23.4-35.0) H 04/25/25 02:35
Magnesium 2.4 mg/dl (1.6-2.3) H 04/25/25 14:34
Triglycerides 132 mg/dl (10-149) 04/24/25 04:33
LDL Cholesterol, Calc 152 mg/dl 04/24/25 04:33
VLDL Cholesterol, Calc 26 mg/dl (0-30) 04/24/25 04:33
HDL Cholesterol 36 mg/dl 04/24/25 04:33
LAB Results
04/24/25
09:00
Troponin I Cancelled
Physical Exam
Constitutional: No acute distress and Comfortable
EENT: Anicteric and Moist mucous membranes
Cardiovascular: Rhythm & rate is regular, Pedal edema is absent, JVD pressure is normal, S1S2 is normal and Murmur/rub/gallop absent
Respiratory: Respiratory effort normal, Lungs clear to auscul., Wheeze Absent, Crackles Absent and Rhonchi Absent
GI: Soft, Distention absent, Flat, Non tender and Normal bowel sounds
Neuro/Psych: AO x 3
Other: Cath Site (Right femoral access site is C/D/I.)
Data Reviewed
-
Date of Service: April 27, 2025
Medical Decision Making: Reviewed Test Results, Independent Historian Assessment, Test Interpretation and Review of Case with other Provider
EKG: Tracing Personally Visualized and interpreted and Report Reviewed by me
Echo: Tracing Personally Visualized and interpreted and Report Reviewed by me
X-Ray/CT/US/MRI/NUC/PET: Image Personally Visualized and interpreted and Report Reviewed by me
Medical Tests (PFT, Pathology etc): Image Personally Visualized and interpreted, Report Reviewed by me, Discussed with Patient and Discussed with Family
Labs: Labs Reviewed by me
Old Records: Reviewed
[2025-04-27] MEDS: ASPIR LOW (ENTERIC COATED) 81 MG PO (08:53)
[2025-04-27] MEDS: FLOMAX 0.4 MG PO (08:53)
[2025-04-27] MEDS: PLAVIX 75 MG PO (08:53)
[2025-04-27] MEDS: COLACE 100 MG PO (08:53)
[2025-04-27] MEDS: ZINC 50 MG PO (08:53)
[2025-04-27] MEDS: DIOVAN 320 MG PO (08:53)
[2025-04-27] MEDS: LOPRESSOR 50 MG PO (08:53)
[2025-04-27] MEDS: NON-FORMULARY ITEM 3 TABLET PO (08:54)
[2025-04-27] MEDS: BenGay-Like 1 APPLIC TOPICAL (08:54)
[2025-04-27 08:57] VITALS: BP 108/90
--- NOTE | 2025-04-27 09:37 | PTCARENOTE ---
Assumed care at 0700. Patient awake and alert in chair. NSR with PVC's. Right femoral site CDI. Denies pain or shortness of breath, call jackson in reach
[2025-04-27 10:47] VITALS: BP 106/53
--- NOTE | 2025-04-27 11:09 | CM ---
Chart reviewed. Patient is independent of ADLS, lives alone in a apartment, 3 story, elevator access, ambulates with a SPC. CM to follow
[2025-04-27 14:12] VITALS: BP 116/69
--- NOTE | 2025-04-27 14:12 | W.DCSUMMARY ---
Discharge Summary
Discharge Data
Date of Admission: 04/23/25
Date of Discharge: 04/27/25
-
Pending Results: No
Hospital Course
Primary diagnosis:
Non-ST elevation [place] status post left heart cath, bypass angiogram, successful stent to LRA to D2 mid graft and successful PCI of LRA/D1 anastomosis 04/25/2025
Secondary diagnosis:
Essential hypertension
Hyperlipidemia
History of ulcerative colitis
Coronary disease s/p CABG
History of benign prostatic hypertension
History of atrial fibrillation s/p ablation
Hospital course:
Patient with history of CAD status post CABG presented with chest pain and had a peak troponin 0.05 and story was suggestive of non-ST elevation [place]. He had a left heart catheter, bypass angiogram and had need of a stent to LRA to D2 mid graft and
successful PCI of LRA/D1 anastomosis. Post stenting had a brief chest pain which resolved quickly. No interventions needed. He was advised DAPT for 12 months, metoprolol and was put on a high dose of statins which he was not on before. There is
also disease in the left circumflex and the cardiology plan to do a left circumflex intervention in 4 to 5 weeks.
His LDL was 152 total cholesterol was 214.
No evidence of heart failure noted.
Has a history of atrial fibrillation status post ablation in 2008. Currently is in sinus rhythm. On metoprolol. His Michael S2 Vascor was 4, not on DOAC due to history of lower GI bleed due to ulcerative colitis. Cardiology recommended to consider
LAAO if concern for CVA risk in the setting of AC discontinuation particularly if A-fib becomes recurrent.
As blood pressures under goal during the stay here.
Today he was alert and oriented. No chest pain or shortness of breath. Afebrile and hemodynamically stable. Chest was clear to auscultation. Abdomen was benign.
Today he was felt stable from cardiology standpoint as well as from medical standpoint and was discharged home.
Total time of discharge 32 minutes.
Consultants on board:
Cardiology-Anton Aviles
Discharge Plan
-
Patient Disposition: Home (Routine Discharge)
Discharge Diagnosis/Procedures: NSTEMI/CAD; HX of CABG;Angioplasty and stent x3 to radial graft-Diagonal artery
Diet: Low Cholesterol
Activity: As tolerated
Driving Restrictions: Not until seen by your Dr
Bathing Restrictions: OK to Shower
Other Services: Cardiac Rehab
Stand Alone Forms: DC Instructions- Cath/EP Lab
Referrals:
[facility] [Outside] - 05/24/25 1:00 pm
Referral Note: Cardiac Rehab Orientation appointment is on 05/24/25 at 1 PM
The Cardiac Rehab gym is located on the first floor of the [facility].
To Samson MD [Family Provider, Family Practice]
Cristina Melgar NP [Specified Professional Personl, Cardiology] - 05/17/25 11:40 am
Prescriptions:
New
atorvastatin 80 mg Tablet
80 mg PO QPM Qty: 30 0RF
clopidogrel 75 mg Tablet
75 mg PO DAILY Qty: 30 0RF
Continued
metoprolol tartrate 50 MG tablet
50 mg PO BID
balsalazide 750 MG capsule
3 tab PO TID
aspirin 81 MG tablet,delayed release (DR/EC)
81 mg PO DAILY
tamsulosin 0.4 MG capsule
0.4 mg PO DAILY
zinc gluconate 50 mg Tablet
50 mg PO DAILY
hydrocodone-acetaminophen
5 - 325 mg PO BID PRN (Reason: pain )
valsartan-hydrochlorothiazide 80-12.5 mg tablet
1 tab PO DAILY
Discharge Orders:
Discharge Patient (As Directed); Ordered 04/27/25
Ordered By: Giorgi Osullivan
Care Plan Goals
Care Plan Goals:
Problem: Readiness for enhanced knowledge related to diagnosis and treatment plan
Goal: Understand your diagnosis and treatment plan needs, including medications if applicable.
Instructions: Know your diagnosis, underlying causes and treatment plan options, including medications if applicable. Consult with your health care team to learn about your diagnosis and treatment plan, including medications if applicable.
Discharge Date and Time
Print Language: DJIBOUTIAN
--- NOTE | 2025-04-27 14:37 | PTCARENOTE ---
Discharge teaching completed. Patient verbalized understanding. IV and telemetry removed. Patient dressed in chair, daughter will be picking in up for transport in 30 minutes.
== END 2025-04-27 15:59 | disposition home or self-care (01) | DRG 322 ==
LOC: IVU 17:23
PROVIDERS: Hospitalist; Internal Medicine Cardiovascular Disease; Nurse Practitioner; Nurse Practitioner Gerontology; Physician Assistant Medical; ADMITTING PHYSICIAN Internal Medicine; ATTENDING PHYSICIAN Internal Medicine; CONSULT PHYSICIAN Internal Medicine; EMERGENCY PHYSICIAN Emergency Medicine; FAMILY PHYSICIAN Family Medicine
PROC: 02713FZ Dilation of Coronary Artery, Two Arteries with Three Intraluminal Devices, Percutaneous Approach (ICD-10-PCS; 2025-04-25)
PROC: B2111ZZ Fluoroscopy of Multiple Coronary Arteries using Low Osmolar Contrast (ICD-10-PCS; 2025-04-25)
PROC: B2181ZZ Fluoroscopy of Left Internal Mammary Bypass Graft using Low Osmolar Contrast (ICD-10-PCS; 2025-04-25)
PROC: B2131ZZ Fluoroscopy of Multiple Coronary Artery Bypass Grafts using Low Osmolar Contrast (ICD-10-PCS; 2025-04-25)
PROC: 4A023N7 Measurement of Cardiac Sampling and Pressure, Left Heart, Percutaneous Approach (ICD-10-PCS; 2025-04-25)
DX: I21.4 Non-ST elevation (NSTEMI) myocardial infarction (principal); I25.810 Atherosclerosis of coronary artery bypass graft(s) without angina pectoris; K51.90 Ulcerative colitis, unspecified, without complications; I25.10 Atherosclerotic heart disease of native coronary artery without angina pectoris; I10 Essential (primary) hypertension; I73.9 Peripheral vascular disease, unspecified; E78.5 Hyperlipidemia, unspecified; I48.0 Paroxysmal atrial fibrillation; N40.0 Benign prostatic hyperplasia without lower urinary tract symptoms; R73.03 Prediabetes; E66.9 Obesity, unspecified; I25.82 Chronic total occlusion of coronary artery; Z68.28 Body mass index [BMI] 28.0-28.9, adult; Z87.891 Personal history of nicotine dependence; Z79.82 Long term (current) use of aspirin
CPT/HCPCS: 36415; 71046; 80048; 80053; 80061; 82550; 82553; 82570; 82962; 83036; 83735; 84156; 84484; 85025; 85027; 85610; 85730; 93005; 93306; 93459; 96365; 99152; 99153; 99285; C1725; C1760; C1769; C1874; C1884; C1894; C9604; Q9967

== ENCOUNTER 2025-05-26 10:42 | Day surgery (SDC) | payer MEDICARE, OTHER, SELFPAY ==
[2025-05-26] VITALS (12 sets, daily range): BP systolic 112–162; BP diastolic 53–123; BMI 27.5
[2025-05-26] MEDS: NSS 268 ML IV (11:56)
[2025-05-26 15:55] LABS: ACT-LR - POC 310 Seconds (116-155)
[2025-05-26 16:17] LABS: ACT-LR - POC 331 Seconds (116-155)
--- NOTE | 2025-05-26 16:29 | ITS.CL.ANGIO ---
Imaging System Administrator - Angioplasty
Angioplasty
Procedure Report:
CARDIAC CATHETERIZATION REPORT
Date of Procedure: 05/26/2025
Referring: Tom Allen M.D.
INDICATION: Staged PCI after prior non-ST elevation myocardial infarction.
PROCEDURE:
1. Left heart catheterization
2. Left coronary angiography.
3. Successful PCI of the proximal left circumflex.
A total of 42 minutes of procedural/moderate sedation was utilized. An independent medical equipment sales was present to assist with and help manage the patient's level of consciousness and physiologic status.
ACCESS:
1. 6 [place] right radial artery using a modified Seldinger technique.
CATHETERS:
1. 6 [place] EBU 3.5 guiding catheter.
2. 5 [place] JR4.
HEMODYNAMIC DATA
Weight (kg): 89.4
AO (s/d/x, mmHg): 164/75/104
LV (s/x mmHg): 167/24
LEFT VENTRICULOGRAPHY: Not performed.
CORONARY ANGIOGRAPHY
Dominance: Codominant.
Left Main: Normal size, trifurcating vessel. There is no coronary artery disease.
LAD: Normal size vessel giving rise to at least 2 significant diagonals. There is a 70% lesion in the proximal vessel. The vessel is chronically totally occluded at its midportion and supplied by a WATSON graft. The second diagonal is supplied
by a left radial artery graft.
Ramus: Small size vessel supplying the proximal margin of the anterolateral wall. There are luminal irregularities.
Circumflex: Large size, codominant vessel giving rise to 1 obtuse marginal then terminating as a partial LPDA. There is a 90% lesion in the proximal vessel. There is a 50% lesion in the distal circumflex before the partial LPDA. The obtuse
marginal is chronically totally occluded at its origin. The obtuse marginal is supplied by a vein graft.
RCA: Not injected. Known to be a small size, codominant vessel that is chronically totally occluded at its origin.
BYPASS GRAFT ANGIOGRAPHY
WATSON to LAD: Not injected. Known to be a normal size graft with Endo side anastomosis to the mid/distal LAD.
LRA to D2: Not injected. Known to be a normal size graft with end-to-side anastomosis to the second diagonal status post prior PCI to the mid graft and LRA/D2 anastomosis.
SVG to OM1: Not injected. Known to be a normal size graft with end-to-side anastomosis to the first obtuse marginal.
SVG to LCx: Not injected. Known to be occluded at its origin.
INTERVENTION(S)
1. Successful IVUS guided PCI of the 90% proximal circumflex lesion (Medtronic [place] 3.5 x 12 EUSEBIO, postdilated with a 4.0 NC balloon) with reduction in stenosis to 0%, maintaining SHALOM-3 flow.
Narrative:
The decision was made to proceed with percutaneous coronary intervention. The 6Fr EBU 3.5 guiding catheter was advanced to the aortic root and seated in the left main coronary artery. Additional heparin was given and a Power Turn Flex wire was
advanced into the distal circumflex. A BMW wire was advanced into the ramus for protection and to serve as a marker. The 90% proximal circumflex lesion was predilated with a 2.0 x 12 semi-compliant balloon to 12 darren. Prior to inflation, we
observed that the presence of the balloon was occlusive, demonstrating that the circumflex lesion was quite severe.
After dilating, the decision was made to predilate more aggressively prior to stent placement. The semicompliant balloon was removed and a 3.0 x 12 noncompliant balloon was advanced. The lesion was predilated to 12 darren.
The noncompliant balloon was removed and a Medtronic [place] 3.5 x 12 drug-eluting stent was advanced. The stent was deployed at 12 atmospheres. The stent balloon was removed.
The decision was made to perform intracoronary imaging. An IVUS catheter was advanced through the guiding catheter and into the ostium of the artery. Ring down was performed once the imaging crystal was no longer inside of the guiding catheter. The
IVUS catheter was advanced into the mid circumflex, beyond the stented segment. Intravascular ultrasound was performed in a retrograde fashion using a slow pullback. Intracoronary imaging demonstrated good stent apposition throughout the majority of
the stent with mild mall apposition in the proximal margin. There was minor underexpansion in the mid and proximal portion. Vessel measurements were obtained.
The IVUS catheter was withdrawn and a 4.0 x 12 noncompliant balloon was advanced into the stent and the stent was postdilated to 14 atmospheres. The noncompliant balloon was withdrawn. Angiography was performed in orthogonal views, confirming good
stent expansion and an excellent angiographic result. The coronary wire was withdrawn and the guide was disengaged from the artery. The catheter was removed over a standard J-wire.
Closure Device: Vascular band for the right radial artery.
Radiation (mGy): 544
DAP (cm2.Gy): 23.0
Fluoroscopy time (minutes): 9.7
CONCLUSIONS
1. Codominant circulation with chronically intuitively occluded RCA, 70% lesion in the proximal LAD followed by chronic total occlusion of the mid LAD, a 90% lesion in the proximal circumflex, a 50% lesion in the distal circumflex, chronic total
occlusion of the obtuse marginal, status post prior bypass (previously patent WATSON to LAD, SVG to OM1, LRA to D2 status post PCI to mid graft and anastomosis, occluded SVG to distal circumflex), status post successful IVUS guided PCI to the 90%
proximal circumflex lesion (Medtronic [place] 3.5 x 12 EUSEBIO, postdilated with a 4.0 NC balloon) with reduction in stenosis to 0%, maintaining SHALOM-3 flow.
2. Moderately to severely elevated filling pressures (LVEDP = 24 mmHg at 89.4 kg).
RECOMMENDATIONS:
1. Expectant management after cardiac catheterization via right radial approach.
2. Limited weight bearing on the right for one week.
3. Maintain dual antiplatelet therapy with aspirin and clopidogrel for at least 12 months, followed by aspirin indefinitely.
4. Start furosemide 40 mg daily for elevation in filling pressures.
5. OMT/GDMT as hemodynamics will tolerate.
6. Aggressive secondary prevention with high-dose, high potency statin. Goal LDL <55.
7. Repeat echocardiogram in 90 days.
8. Referral to cardiac rehab.
Copy to: Tom Allen M.D., To Samson M.D.
Anton Corcoran DO, FACC, FACP
[2025-05-26] MEDS: NSS 1000 IV (17:15)
[2025-05-26] MEDS: LASIX 40 MG IV (17:59)
--- NOTE | 2025-05-26 18:33 | PTCARENOTE ---
Pt received from geophysical laboratory supervisor post PCI done via right radial artery. Pt c/o / jaw pain which resolved completely within 30 minutes, Dariela Ponce NP aware. Radial band in place, no sign of bleeding or hematoma. Pt able to stand at bedside and void
without difficulty. Telemetry shows atrial fib with occasional PVC's.
[2025-05-26] MEDS: LOPRESSOR 50 MG PO (19:50)
[2025-05-26] MEDS: TYLENOL 650 MG PO (20:52)
--- NOTE | 2025-05-27 01:17 | PTCARENOTE ---
Received pt @ change of shift. AAOx3, VSS-- NSR w/ PVCs and PACs on monitor. Right radial band intact-- 5 mL of air remaining. Clean, dry, and intact. Little ecchymosis, no hematoma present @ this time. Band removed per protocol-- see MAR. NSS gtt
running @ 134 mL/hr for 5 hours. Discontinued upon completion. Pt c/o headache (2/10 bilateral temples)-- Tylenol given-- see MAR. Discussed plan of care for evening. Pt verbalizes understanding. Call jackson within reach.
[2025-05-27 04:28] VITALS: BP 139/75
[2025-05-27 05:12] LABS: Hematocrit 42.6 % (39.0-52.0); Hemoglobin 14.4 g/dL (13.0-18.0); Mean Corp Hgb Conc. 33.8 g/dL (33.0-37.0); Mean Corpuscular Volume 92.6 fL (80.0-94.0); Platelet Count 270 10^3/uL (130-400); Red Cell Dist. Width 14.8 % (11.5-14.5)
[2025-05-27 05:36] LABS: Blood Urea Nitrogen 29 mg/dl (9-20); Calcium 9.3 mg/dl (8.4-10.2); Carbon Dioxide 25 mmol/L (22-30); Chloride 109 mmol/L (98-107); Estimated Creatinine Clearance 65 ml/min; Glucose 92 mg/dl (70-99); HDL Cholesterol 35 mg/dl; LDL Cholesterol, Calculated 47 mg/dl; Potassium 3.9 mmol/L (3.5-5.1); Sodium 142 mmol/L (135-145); Very Low Density Lipoprotein 22 mg/dl (0-30); eGFR > 60.00
[2025-05-27 07:00] VITALS: BP 148/85
--- NOTE | 2025-05-27 08:24 | W.PN.CD ---
Today's Communication / Plan
-
Discharge.
Impression / Plan
-
Impression/Plan: 84 y/o male with HTN, HLD, AF s/p ablation and CAD s/p prior CABG, recently admitted with NSTEMI requiring PCI to LRA to D2, now admitted after elective, staged PCI of pLCx.
#CAD
-Chronic, progressive.
-S/P CABG circa 2005 - patent WATSON to LAD, SVG to dRCA, occluded SVG to dLCx, LRA to D2 with 95% mid graft lesion and 90% anastomosis lesion in LRA to D2 s/p PCI (overlapping Xience Skypoint 2.25 x 28 EUSEBIO, 2.5 x 12 EUSEBIO, postdilated with a 2.25 NC
balloon throughout and a 2.5 NC balloon in the overlap and proximal margin), 04/25/2025.
-S/P PCI to 95 % mid graft LRA lesion (Xience Skypoint 3.25 x 38 EUSEBIO, postdilated with a 3.25 NC balloon) with reduction in stenosis to 0%, complicated by slow reflow/no reflow), 04/25/2025.
-S/P PCI to 90% LRA/D2 anastamotic lesion (overlapping Xience Skypoint 2.25 x 28 EUSEBIO, 2.5 x 12 EUSEBIO, postdilated with a 2.25 NC balloon throughout and a 2.5 NC balloon in the overlap and proximal margin), 04/25/2025.
-S/P IVUS guided PCI to 90% ostial/proximal LCx lesion (Medtronic [place] 3.5 x 12 EUSEBIO, post dilated with a 4.0 NC balloon).
-Maintain furosemide in light of elevated filling pressures.
-Maintain DAPT with aspirin/clopidogrel for one year, followed by aspirin indefinitely.
-Aggressive secondary prevention with high dose, high potency statin.
-Referral to cardiac rehab.
#HTN
-Chronic, stable.
-Resume home antihypertensives.
#HLD
-Chronic, stable.
-Resume atorvastatin 80 mg daily.
-Goal LDL < 55.
#PAF
-Currently in NSR.
-Rate/rhythm control with prior ablation only.
-CHADS2-VASC = 4 (HTN, Age x2, vascular disease).
-Not currently on therapeutic anticoagulation. Deferred to outpatient cardiology.
#PPx
-SCDs + ambulation for DVT/VTE.
-No role for PPI at this time.
#Dispo
-IVU status.
-Full code.
-Discharge.
Subjective/Interval History:
Successful PCI of ostial/proximal LCx yesterday.
No acute events.
No subjective complaints.
DATA:
Cardiac Catheterization/PCI, 05/26/2026:
CONCLUSIONS
1. Codominant circulation with chronically intuitively occluded RCA, 70% lesion in the proximal LAD followed by chronic total occlusion of the mid LAD, a 90% lesion in the proximal circumflex, a 50% lesion in the distal circumflex, chronic total
occlusion of the obtuse marginal, status post prior bypass (previously patent WATSON to LAD, SVG to OM1, LRA to D2 status post PCI to mid graft and anastomosis, occluded SVG to distal circumflex), status post successful IVUS guided PCI to the 90%
proximal circumflex lesion (Medtronic [place] 3.5 x 12 EUSEBIO, postdilated with a 4.0 NC balloon) with reduction in stenosis to 0%, maintaining SHALOM-3 flow.
2. Moderately to severely elevated filling pressures (LVEDP = 24 mmHg at 89.4 kg).
Physical Exam
Vital Signs/Labs
Vital Signs
Temp Pulse Resp BP Pulse Ox
36.4 C 86 18 148/85 98
05/27/25 06:57 05/27/25 07:15 05/27/25 06:57 05/27/25 07:00 05/27/25 06:57
05/25/25 05/26/25 05/27/25
11:59 11:59 11:59
Actual Weight 89.358 kg
05/27/25 04:43
05/27/25 04:43
Triglycerides 113 mg/dl (10-149) 05/27/25 04:43
LDL Cholesterol, Calc 47 mg/dl 05/27/25 04:43
VLDL Cholesterol, Calc 22 mg/dl (0-30) 05/27/25 04:43
HDL Cholesterol 35 mg/dl 05/27/25 04:43
Physical Exam
Constitutional: No acute distress and Comfortable
EENT: Anicteric and Moist mucous membranes
Cardiovascular: Rhythm & rate is regular, Pedal edema is absent, JVD pressure is normal, S1S2 is normal and Murmur/rub/gallop absent
Respiratory: Respiratory effort normal, Lungs clear to auscul., Wheeze Absent, Crackles Absent and Rhonchi Absent
GI: Soft, Distention absent, Flat, Non tender and Normal bowel sounds
Neuro/Psych: AO x 3
Other: Cath Site (Right radial access site is C/D/I.)
Data Reviewed
-
Date of Service: May 27, 2025
Medical Decision Making: Reviewed Test Results, Independent Historian Assessment and Test Interpretation
EKG: Tracing Personally Visualized and interpreted and Report Reviewed by me
X-Ray/CT/US/MRI/NUC/PET: Image Personally Visualized and interpreted and Report Reviewed by me
Medical Tests (PFT, Pathology etc): Image Personally Visualized and interpreted, Report Reviewed by me and Discussed with Patient
Labs: Labs Reviewed by me
[2025-05-27] MEDS: ASPIR LOW (ENTERIC COATED) 81 MG PO (08:43)
[2025-05-27] MEDS: ORETIC 12.5 MG PO (08:43)
[2025-05-27] MEDS: PLAVIX 75 MG PO (08:43)
[2025-05-27] MEDS: LASIX 40 MG PO (08:43)
[2025-05-27] MEDS: DIOVAN 80 MG PO (08:43)
[2025-05-27] MEDS: LIPITOR 80 MG PO (08:43)
[2025-05-27] MEDS: FLOMAX 0.4 MG PO (08:44)
[2025-05-27] MEDS: LOPRESSOR 50 MG PO (08:44)
[2025-05-27 09:51] LABS: Magnesium 2.3 mg/dl (1.6-2.3)
[2025-05-27 10:44] VITALS: BP 132/83
--- NOTE | 2025-05-27 11:03 | CM ---
CM following for DC planning needs.
Met w/ patient at bedside to complete initial assessment. Pt. resides alone in a private, [facility]. There is an elevator in the home. Pt. has a SPC, which he uses regularly.
DC plan is for home, no needs. CM to follow.
--- NOTE | 2025-05-27 11:23 | PTCARENOTE ---
Pt denies any discomfort, seen by Dariela Ponce NP. Telemetry and IV device removed. Discharge instructions reviewed with pt regarding medications and their possible side effects, wound care, activity and driving restrictions, reporting cares and
concerns and follow up appt's. Very good understanding verbalized. Pt escorted out via wheelchair and discharged to home.
--- NOTE | 2025-05-27 11:36 | W.DS.TRANS ---
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
-
Discharge Instructions:
Sleep Apnea Risk High
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
Diet Low Cholesterol
Driving Restrictions No driving for 24 hours
Blood Work Check BMP in 1 week
Others Tests You will need follow up Echo in 3 months
Other Services Cardiac Rehab
Instructions:
Stand-Alone Forms: DC Instructions- Cath/EP Lab
Changes to Home Medications: Yes
Discharge Medications:
DC Medications w/original date entered in [employer]
balsalazide 750 mg capsule 3 tab PO TID 09/17/15
metoprolol tartrate 50 mg tablet 50 mg PO BID 09/17/15
aspirin 81 mg tablet,delayed release 81 mg PO DAILY 01/29/21
tamsulosin 0.4 mg capsule 0.4 mg PO DAILY 01/29/21
zinc gluconate 50 mg tablet 50 mg PO DAILY 04/23/25
hydrocodone-acetaminophen 5 - 325 mg PO BID PRN pain 04/24/25
clopidogrel 75 mg tablet 75 mg PO DAILY #30 tabs 04/27/25
valsartan 80 mg-hydrochlorothiazide 12.5 mg tablet 1 tab PO DAILY Blood Pressure 04/27/25
atorvastatin 80 mg tablet 80 mg PO DAILY 05/26/25
furosemide 40 mg tablet 40 mg PO DAILY #90 tabs 05/26/25
methenamine hippurate 1 gram tablet 1 g PO DAILY 05/26/25
multivitamin 1 tab PO DAILY 05/26/25
Home Medication Changes
new to [facility]
Pending Results: No
== END 2025-05-27 11:38 | disposition home or self-care (01) ==
LOC: CATH 10:42
PROVIDERS: Nurse Practitioner Adult Health; ATTENDING PHYSICIAN Internal Medicine Cardiovascular Disease; FAMILY PHYSICIAN Family Medicine
DX: I25.10 Atherosclerotic heart disease of native coronary artery without angina pectoris (principal); E78.5 Hyperlipidemia, unspecified; I48.0 Paroxysmal atrial fibrillation; Z95.1 Presence of aortocoronary bypass graft; I25.2 Old myocardial infarction; K51.90 Ulcerative colitis, unspecified, without complications; I12.9 Hypertensive chronic kidney disease with stage 1 through stage 4 chronic kidney disease, or unspecified chronic kidney disease; N18.30 Chronic kidney disease, stage 3 unspecified; M19.90 Unspecified osteoarthritis, unspecified site; Z79.82 Long term (current) use of aspirin; Z79.02 Long term (current) use of antithrombotics/antiplatelets; Z79.899 Other long term (current) drug therapy; I25.82 Chronic total occlusion of coronary artery; I49.1 Atrial premature depolarization; D32.9 Benign neoplasm of meninges, unspecified; I49.3 Ventricular premature depolarization; I49.8 Other specified cardiac arrhythmias; Z95.5 Presence of coronary angioplasty implant and graft
CPT/HCPCS: 92978; 99152; 99153; 80048; 80061; 83735; 85027; 85347; 93005; 93458; C1725; C1753; C1769; C1874; C1894; C9600